=== PATIENT | female | born 1985 | race Caucasian/White ===

== ENCOUNTER → 2016-10-15 | Outpatient (CLI) | payer MEDICAID | LOC: LAB 19:18 | PROVIDERS: ATTEND Nurse Practitioner Acute Care | DX: R10.84 Generalized abdominal pain (principal) | CPT/HCPCS: 87086; 87088; 87186 ==

== ENCOUNTER 2017-05-22 21:42 | Emergency (ER) | payer MEDICAID ==
[2017-05-22] MEDS ORDERED: LORAZEPAM 1 MG TABLET PO ONE (22:15)
--- NOTE | 2017-05-22 23:09 | ER Document Report ---
ED General - General Chief Complaint: Psych Problem Stated Complaint: ANXIETY Time Seen by Provider: 05/22/17 22:15 Notes: Patient is a 32 year old female with past medical history of anxiety, situational depression, who presents after having an acute panic attack with associated chest pain. States this started due to being the anniversary of when she lost her children in a custody higuera. She reports that she has had similar panic attacks in the past but that this 1 was 1 of the most severe she has ever had. She is reporting improvement of her symptoms at the time of my assessment after receiving lorazepam. She notes that it was acute onset with associated shortness of breath, chest pain and a feeling of impending doom. She has no history of any cardiac pathology, pulmonary embolus or DVT. She denies any active pain at time of my assessment. Denies any suicidal or homicidal ideation. TRAVEL OUTSIDE OF THE [place] IN LAST 30 DAYS: No - Related Data Allergies/Adverse Reactions: amoxicillin Allergy (Verified 05/22/17 22:18) ibuprofen Allergy (Verified 05/22/17 22:18) Past Medical History - General Information source: Patient - Social History Smoking Status: Never Smoker Frequency of alcohol use: None Drug Abuse: None Lives with: Spouse/Significant other Family History: Reviewed & Not Pertinent Review of Systems - Review of Systems Notes: Constitutional: Negative for fever. HENT: Negative for sore throat. Eyes: Negative for visual changes. Cardiovascular: Positive for chest pain. Respiratory: Negative for shortness of breath. Gastrointestinal: Negative for abdominal pain, vomiting or diarrhea. Genitourinary: Negative for dysuria. Musculoskeletal: Negative for back pain. Skin: Negative for rash. Neurological: Negative for headaches, weakness or numbness. 10 point ROS negative except as marked above and in HPI. Physical Exam - Vital signs Vitals: Temp Pulse Resp BP Pulse Ox 98.4 F 109 H 24 H 125/72 99 05/22/17 21:53 05/22/17 21:53 05/22/17 21:53 05/22/17 21:53 05/22/17 21:53 Interpretation: Tachycardic, Tachypneic Notes: PHYSICAL EXAMINATION: GENERAL: Well-appearing, well-nourished and in no acute distress. HEAD: Atraumatic, normocephalic. EYES: Pupils equal round and reactive to light, extraocular movements intact, sclera anicteric, conjunctiva are normal. ENT: nares patent, oropharynx clear without exudates. Moist mucous membranes. NECK: Normal range of motion, supple without lymphadenopathy LUNGS: Breath sounds clear to auscultation bilaterally and equal. No wheezes rales or rhonchi. HEART: Regular rate and rhythm without murmurs ABDOMEN: Soft, nontender, normoactive bowel sounds. No guarding, no rebound. No masses appreciated. EXTREMITIES: Normal range of motion, no pitting or edema. No cyanosis. NEUROLOGICAL: No focal neurological deficits. Moves all extremities spontaneously and on command. PSYCH: Normal mood, normal affect. SKIN: Warm, Dry, normal turgor, no rashes or lesions noted. Course - Re-evaluation Re-evalutation: 05/22/17 23:03 Patient presents with history most consistent with an acute panic attack. The patient admits that these are symptoms identical to prior occasions of panic. There was a clear trigger for tonight's episode. Symptoms did resolve after receiving medical therapy here in the emergency department. Vitals otherwise within normal limits. I do not suspect an acute pulmonary embolus, ACS, pneumothorax, or any other acute left threatening pathology based on history and exam. I do not believe any labs or imaging are indicated at this time. At this time will discharge with return precautions and follow-up recommendations. Verbal discharge instructions given a the bedside and opportunity for questions given. Medication warnings reviewed. Patient is in agreement with this plan and has verbalized understanding of return precautions and the need for primary care follow-up in the next 24-72 hours. - Vital Signs Vital signs: Temp Pulse Resp BP Pulse Ox 98.3 F 82 16 106/66 99 05/22/17 23:26 05/22/17 23:26 05/22/17 23:26 05/22/17 23:26 05/22/17 23:26 - EKG Interpretation by Me Additional EKG results interpreted by me: 05/22/17 23:03 Normal sinus rhythm. Rate 98. No ST elevations or depressions. QTC is 455. Discharge - Discharge Clinical Impression: Anxiety attack Condition: Good Disposition: HOME, SELF-CARE Additional Instructions: You were seen today for a panic attack. Please return if you develop recurrance of your symptoms, thoughts of wanting to harm yourself, or any other symptoms that are concerning to you. Follow-up with your primary doctor or mental health provider regarding today's ED visit. Prescriptions: Hydroxyzine Pamoate [Vistaril 50 mg Capsule] 50 mg PO DAILY PRN #30 capsule PRN Reason:
[2017-05-22 23:40] VITALS: BP 106/66
--- NOTE | 2017-05-23 16:54 | EKG REPORT ---
SEVERITY:- BORDERLINE ECG - SINUS RHYTHM BORDERLINE RIGHT AXIS DEVIATION BORDERLINE T ABNORMALITIES, ANT-LAT LEADS : Confirmed by: Mara Martinez MD 23-May-2017 16:53:43
== END 2017-05-22 23:40 | disposition home or self-care (01) ==
LOC: ER 21:42
DX: F41.0 Panic disorder [episodic paroxysmal anxiety] (principal); R07.9 Chest pain, unspecified; R06.02 Shortness of breath; R00.0 Tachycardia, unspecified; Z88.0 Allergy status to penicillin; Z88.6 Allergy status to analgesic agent
CPT/HCPCS: 93005; 93010; 99284

== ENCOUNTER 2018-01-24 15:15 | Emergency (ER) | payer OTHER, MEDICAID | END 2018-01-24 15:20 | disposition left against medical advice (07) | LOC: ER 15:15 | DX: Z53.21 Procedure and treatment not carried out due to patient leaving prior to being seen by health care provider (principal); R10.9 Unspecified abdominal pain ==

== ENCOUNTER 2018-04-11 17:34 | Emergency (ER) | payer MEDICAID ==
[2018-04-11 17:42] VITALS: BP 123/74
--- NOTE | 2018-04-11 18:07 | ER Document Report ---
HPI - HPI Patient complains to provider of: Left upper arm pain Onset/Duration: Gradual Pain Level: 2 Context: 32-year-old female started working out again and has pain to her distal bicep of the left arm. She states it hurts worse than usual soreness when she works out and she wants to make sure nothing really bad has happened. Associated Symptoms: None Exacerbated by: Movement Relieved by: Denies - ROS ROS below otherwise negative: Yes Systems Reviewed and Negative: Yes All other systems reviewed and negative - REPRODUCTIVE Reproductive: REPORTS: : - MUSCULOSKELETAL Musculoskeletal: REPORTS: Extremity pain Past Medical History - General Information source: Patient - Social History Smoking Status: Current Every Day Smoker Frequency of alcohol use: None Drug Abuse: None Lives with: Family Family History: Reviewed & Not Pertinent Patient has suicidal ideation: No Patient has homicidal ideation: No Renal/ Medical History: Denies: Hx Peritoneal Dialysis Psychiatric Medical History: Reports: Hx Anxiety Past Surgical History: Reports: Hx Appendectomy, Hx Genitourinary Surgery - L ovary removed, Hx Gynecologic Surgery - Left salpingo-oophorectomy and multiple laparoscopies for endometriosis., Hx Tonsillectomy - Immunizations Hx Diphtheria, Pertussis, Tetanus Vaccination: Yes Vertical Provider Document - CONSTITUTIONAL Agree With Documented VS: Yes Exam Limitations: No Limitations - INFECTION CONTROL TRAVEL OUTSIDE OF THE [place] IN LAST 30 DAYS: No - MUSCULOSKELETAL/EXTREMETIES Musculoskeletal/Extremeties: MAEW, FROM, Tender - Distal left biceps without a defect in the muscle there is no edema or ecchymosis. negative: Edema, Eccymosis - NEURO Level of Consciousness: Awake Motor/Sensory: No Motor Deficit, No Sensory Deficit - DERM Integumentary: No Rash Course - Vital Signs Vital signs: Temp Pulse Resp BP Pulse Ox 98.7 F 80 20 123/74 100 04/11/18 17:40 04/11/18 17:40 04/11/18 17:40 04/11/18 17:40 04/11/18 17:40 Discharge - Discharge Clinical Impression: Left bicep muscle strain Condition: Good Disposition: HOME, SELF-CARE Instructions: Acetaminophen, Muscle Strain ([facility]) Additional Instructions: Warm compress Tylenol up to 4000 mg 4 pain Do not lift weights with this arm until the pain is resolved Gentle range of motion Return to the emergency room any concerns
== END 2018-04-11 18:17 | disposition home or self-care (01) ==
LOC: ER 17:34
DX: S46.212A Strain of muscle, fascia and tendon of other parts of biceps, left arm, initial encounter (principal); X58.XXXA Exposure to other specified factors, initial encounter; F17.200 Nicotine dependence, unspecified, uncomplicated
CPT/HCPCS: 99283

== ENCOUNTER 2018-09-29 20:57 | Emergency (ER) | payer SELFPAY ==
[2018-09-29 21:04] VITALS: BP 146/84
--- NOTE | 2018-09-29 22:31 | RADIOLOGY REPORT (SQ) ---
EXAM DESCRIPTION: XR WRIST 3 OR MORE VIEWS COMPLETED DATE/TME: 09/29/2018 00:00 CLINICAL HISTORY: 33 years, Female, WRIST crush INJURY with medial wrist pain COMPARISON: None. NUMBER OF VIEWS: Three views TECHNIQUE: Three views of the LEFT wrist were performed. LIMITATIONS: None. FINDINGS: Mild soft tissue swelling involves the medial aspect of the LEFT wrist. No radiopaque foreign body is identified. Bone mineralization is within normal limits. No fracture is identified. Bony alignment is maintained. No suspicious calcification is detected. IMPRESSION: Medial soft tissue injury. No LEFT wrist acute bony injury. copyright 2010 [employer]- All Rights Reserved
[2018-09-29] MEDS ORDERED: ONDANSETRON 4 MG TAB.RAPDIS PO ONE (23:01)
[2018-09-29] MEDS ORDERED: HYDROCODONE/ACETAMINOPHEN 5-325 MG TABLET PO ONE (23:02)
--- NOTE | 2018-09-29 23:03 | ER Document Report ---
HPI - HPI Time Seen by Provider: 09/29/18 22:22 Pain Level: 2 Notes: Patient is an otherwise healthy 33-year-old female presenting to the emergency department with left wrist pain. Patient reports just prior to arrival she was trying to change a tire when the tire iron flew back and struck her in the wrist. She has not taken any medications nor has she placed ice to the area. No history of previous trauma or surgery to this area. - CONSTITUTIONAL Constitutional: DENIES: Fever, Chills - EENT EENT: DENIES: Sore Throat, Ear Pain, Eye problems - NEURO Neurology: DENIES: Headache, Weakness, Vision blurred, Dizzinesss / Vertigo - CARDIOVASCULAR Cardiovascular: DENIES: Chest pain - RESPIRATORY Respiratory: DENIES: Trouble Breathing, Coughing - GASTROINTESTINAL Gastrointestinal: DENIES: Abdominal Pain, Black / Bloody Stools - URINARY Urinary: DENIES: Dysuria, Urgency, Frequency - REPRODUCTIVE Reproductive: DENIES: : - MUSCULOSKELETAL Musculoskeletal: REPORTS: Extremity pain - L wrist/hand Past Medical History - General Information source: Patient - Social History Smoking Status: Never Smoker Frequency of alcohol use: None Drug Abuse: None Family History: Reviewed & Not Pertinent Patient has suicidal ideation: No Patient has homicidal ideation: No Renal/ Medical History: Denies: Hx Peritoneal Dialysis Psychiatric Medical History: Reports: Hx Anxiety Past Surgical History: Reports: Hx Appendectomy, Hx Genitourinary Surgery - L ovary removed, Hx Gynecologic Surgery - Left salpingo-oophorectomy and multiple laparoscopies for endometriosis., Hx Tonsillectomy - Immunizations Hx Diphtheria, Pertussis, Tetanus Vaccination: Yes Vertical Provider Document - CONSTITUTIONAL Notes: PHYSICAL EXAMINATION: GENERAL: Well-appearing, well-nourished and in no acute distress. HEAD: Atraumatic, normocephalic. EYES: Pupils equal round extraocular movements intact, conjunctiva are normal. ENT: Nares patent NECK: Normal range of motion LUNGS: No respiratory distress Musculoskeletal: Normal range of motion, swelling and abrasion noted to the medial aspect of the left wrist, normal radial pulse, cap refill less than 3 seconds, normal motor and sensation distal to area of injury. NEUROLOGICAL: Normal speech, normal gait. PSYCH: Normal mood, normal affect. SKIN: Warm, Dry, normal turgor, no rashes or lesions noted. - INFECTION CONTROL TRAVEL OUTSIDE OF THE [place] IN LAST 30 DAYS: No Course - Re-evaluation Re-evalutation: X-ray shows soft tissue swelling to the medial aspect of the left wrist. No acute fracture or dislocation was noted. Will be given a cockup splint for support. Instructed to ice, elevate and take Tylenol as needed for pain as patient reports she is allergic to ibuprofen. - Vital Signs Vital signs: Temp Pulse Resp BP Pulse Ox 98.6 F 102 H 16 146/84 H 99 09/29/18 21:03 09/29/18 21:03 09/29/18 21:03 09/29/18 21:03 09/29/18 21:03 Procedures - Immobilization Left wrist Pre-Proc Neuro Vasc Exam: Normal Immobilizer type: Cock-up Performed by: PCT Post-Proc Neuro Vasc Exam: Normal Alignment checked and good: Yes Discharge - Discharge Clinical Impression: Contusion Qualifiers: Encounter type: initial encounter Contusion area: wrist Laterality: left Qualified Code(s): S60.212A - Contusion of left wrist, initial encounter Condition: Stable Disposition: HOME, SELF-CARE Additional Instructions: Contusion Your injury has resulted in a contusion -- a crushing of the deep tissues. No injury to important structures was detected during the physician's exam. Contusions vary in the amount of pain they cause, and in the length of time required for healing. Typically, the area will become bruised, and will remain painful to touch for two or three weeks. However, most patients are back to working and playing within a few days. After the initial period of rest and cold-packs, your symptoms (together with the doctor's recommendations) will determine how rapidly you can get back to full activity. Usually this means "do what feels okay, but don't do things that hurt." If re-examination was recommended, it's important to follow up as instructed. Call the doctor or return any time if pain increases, if swelling becomes severe, if you develop numbness or weakness in an injured extremity, or if any other alarming symptoms occur. Ice & Elevation Apply ice packs frequently against the painful area. Many different schedules are recommended, such as "20 minutes on, 20 minutes off" or "one hour ice, two hours rest." If you need to work, you may need to go longer between ice treatments. You should plan to have the area ice packed AT LEAST one-fourth of the time. The ice should be applied over the wrap, tape, or splint, or over a layer of cloth -- not directly against the skin. Some ice bags have a built-in cloth and can be put directly on the skin. Your injured part should be elevated as much as possible over the next 48 hours. Try to keep the injury above the level of the heart. Avoid use of the injured area. Elevation and rest will decrease the swelling. The x-rays were negative for any fracture or dislocation. Please take acetaminophen [id number] as directed to help with pain and inflammation. Forms: Return to Work Referrals: ALINE PHILLIPS MD [Primary Care Provider] - Follow up as needed
== END 2018-09-29 23:18 | disposition home or self-care (01) ==
LOC: ER 20:57
DX: S60.212A Contusion of left wrist, initial encounter (principal); M25.532 Pain in left wrist; M79.642 Pain in left hand; W20.8XXA Other cause of strike by thrown, projected or falling object, initial encounter; Y93.89 Activity, other specified
CPT/HCPCS: 99283; 73110; L3908; S0119

== ENCOUNTER 2018-11-20 12:40 | Emergency (ER) | payer BC ==
[2018-11-20 13:04] LABS: ABSOLUTE EOSINOPHILS # (AUTO) 0.1 10^3/uL (0.0-0.6); ABSOLUTE MONOCYTES (AUTO) 0.5 10^3/uL (0.1-1.4); ABSOLUTE NEUT (AUTO) 4.4 10^3/uL (1.7-8.2); BASOPHILS % (AUTO) 0.3 % (0-2); EOSINOPHILS % (AUTO) 1.3 % (0-6); HEMATOCRIT 39.2 % (36.0-47.0); LYMPHOCYTES % (AUTO) 28.2 % (13-45); MEAN CORPUSCULAR HEMOGLOBIN 33.4 pg (27.0-33.4); MEAN CORPUSCULAR HGB CONC 35.7 g/dL (32.0-36.0); MEAN CORPUSCULAR VOLUME 93 fl (80-97); MONOCYTES % (AUTO) 7.2 % (3-13); PLATELET COUNT 302 10^3/uL (150-450); TOTAL CELLS COUNTED % (AUTO) 100 %
[2018-11-20] MEDS ORDERED: NORMAL SALINE 1000 ML 1,000 ML IV ONE (13:13)
[2018-11-20 13:19] LABS: ALANINE AMINOTRANSFERASE 13 U/L (9-52); ALBUMIN 4.3 g/dL (3.5-5.0); ALKALINE PHOSPHATASE 53 U/L (38-126); ANION GAP 11 (5-19); ASPARTATE AMINO TRANSFERASE 18 U/L (14-36); BILIRUBIN,DIRECT 0.3 mg/dL (0.0-0.4); BILIRUBIN,TOTAL 0.4 mg/dL (0.2-1.3); BLOOD UREA NITROGEN 13 mg/dL (7-20); CALCIUM 10.1 mg/dL (8.4-10.2); CARBON DIOXIDE 20 mmol/L (22-30); CHLORIDE 108 mmol/L (98-107); CREATINE KINASE 70 U/L (30-135); GLUCOSE 111 mg/dL (75-110); POTASSIUM 3.5 mmol/L (3.6-5.0); SODIUM 138.8 mmol/L (137-145); TOTAL PROTEIN 6.9 g/dL (6.3-8.2)
--- NOTE | 2018-11-20 13:28 | ER Document Report ---
ED Syncope and Near Syncope - General Stated Complaint: VOMITING Time Seen by Provider: 11/20/18 13:11 Primary Care Provider: AMY JOSEPH MD [Primary Care Provider] - Follow up as needed Notes: Patient says that she was walking in the grocery store and began to feel dizzy and the next thing she knew, she was on the floor, having passed out and awakening with people around her. She tried to sit down but was unable to do so. She is been sick for the past couple of days with nausea and vomiting for 3 days and very poor oral intake. Says she is vomited a couple of times a day. Also says that she had an a ruptured ovarian cyst on and was seen at the local [facility] office by Dr. Lyle who put her on 3 antibiotics. Says her vis ion was blurred during the episode. Did not have any chest pains or shortness of breath. Some abdominal pains, but these are her usual secondary to her endometriosis. Transported here by EMS. Blood sugar was 122. Other vital signs appear to be normal on the way here. She was given IV Zofran and 200 mL of normal saline while in route. Patient has a history of endometriosis and has had numerous abdominal surgeries and laparoscopies, averaging a couple of times a year. Trying to decide if she is ready to have a hysterectomy or not. History of appendectomy. She has had her left tube and ovary removed. Patient has a long history of endometriosis. TRAVEL OUTSIDE OF THE [place] IN LAST 30 DAYS: No - Related Data Allergies/Adverse Reactions: amoxicillin Allergy (Verified 01/24/18 15:18) ibuprofen Allergy (Verified 01/24/18 15:18) Past Medical History - Social History Smoking Status: Current Every Day Smoker Family History: Reviewed & Not Pertinent Patient has suicidal ideation: No Patient has homicidal ideation: No Renal/ Medical History: Reports: Other - Endometriosis Psychiatric Medical History: Reports: Hx Anxiety Past Surgical History: Reports: Hx Appendectomy, Hx Genitourinary Surgery - L ovary removed, Hx Gynecologic Surgery - Left salpingo-oophorectomy and multiple laparoscopies for endometriosis., Hx Tonsillectomy - Immunizations Hx Diphtheria, Pertussis, Tetanus Vaccination: Yes Review of Systems - Review of Systems Notes: REVIEW OF SYSTEMS: CONSTITUTIONAL : Denies fever. EENT: Denies eye, ear, nose or mouth or throat pain or other symptoms. CARDIOVASCULAR: Denies chest pain. RESPIRATORY: Denies cough, chest congestion, or shortness of breath. GASTROINTESTINAL: See HPI. GENITOURINARY: Denies difficulty or painful urinating, urinary frequency, blood in urine. MUSCULOSKELETAL: Denies back or neck pain. Denies joint pain or swelling. SKIN: Denies rash or skin lesions. NEUROLOGICAL: Denies LOC or altered mental status. Denies headache. Denies sensory loss or motor deficits. ALL OTHER SYSTEMS REVIEWED AND NEGATIVE. Physical Exam - Vital signs Vitals: Temp Pulse Resp BP Pulse Ox 98.7 F 97 12 134/74 H 100 11/20/18 12:54 11/20/18 12:54 11/20/18 12:54 11/20/18 12:54 11/20/18 12:54 Interpretation: Normal Notes: PHYSICAL EXAMINATION: GENERAL: Well-appearing, in no acute distress. Vital signs are all normal. HEAD: Atraumatic, normocephalic. EYES: Pupils equal round and reactive to light, extraocular movements intact. ENT: oropharynx clear without exudates. Moist mucous membranes. NECK: Normal range of motion, supple. LUNGS: Breath sounds clear and equal bilaterally. HEART: Regular rate and rhythm without murmurs. ABDOMEN: Soft, nontender. No guarding or rebound. No masses. BACK: No tenderness throughout entire back. EXTREMITIES: Normal range of motion without pain. Negative Homans bilaterally. NEUROLOGICAL: Normal speech, normal gait. Normal sensory, motor, and reflex exams. Awake, alert, and oriented x3. Cranial nerves normal. PSYCH: Normal mood, normal affect. SKIN: Warm, dry, no rashes. Course - Re-evaluation Re-evalutation: 11/20/18 15:45 Patient has had nearly 2 L of fluids and says she feels much better. Does not have any headache at this time. Looks much better as well. - Vital Signs Vital signs: Temp Pulse Resp BP Pulse Ox 98.7 F 97 12 134/74 H 100 11/20/18 12:54 11/20/18 12:54 11/20/18 12:54 11/20/18 12:54 11/20/18 12:54 - Laboratory Result Diagrams: 11/20/18 12:18 11/20/18 12:18 Laboratory results interpreted by me: 11/20/18 12:18 Potassium 3.5 L Chloride 108 H Carbon Dioxide 20 L Glucose 111 H - EKG Interpretation by Me EKG shows normal: Sinus rhythm Rate: Normal Rhythm: NSR Discharge - Discharge Clinical Impression: Syncope, Dehydration, Hypokalemia Condition: Stable Disposition: HOME, SELF-CARE Additional Instructions: SYNCOPAL EPISODE: Syncope (fainting or near-fainting) can occur from many different health problems. Or it can be a simple fainting spell requiring no treatment. It is safe for you to go home, but further evaluation will likely be necessary. Your work-up may include tests for internal bleeding, heart disease, medication problems, or near-strokes. Tests are not always required, however, depending on the nature of your problem. The warning signs of an impending faint include: dizziness, lightheadedness, nausea, hot flashes, tingling, and weakness. If this happens, lay down and put your feet up, then wait until all of these symptoms have passed before standing up again. If these episodes become recurrent, or if you develop chest pain, heart palpitations, mental confusion, blurred vision, or headache, then you should call the physician, or go to the emergency room. Dehydration Dehydration can result from vomiting or diarrhea, fever, or decreased intake of fluids. If severe, hospitalization and intravenous fluids may be required. Most cases are treated at home with fluids by mouth. For the next 24 hours, drink lots of clear fluids. In mild cases, this can be soda pop or sports drinks. For more severe dehydration, the doctor may recommend special fluids such as Pedialyte or Lytren. Try to get three liters (3 quarts) of fluid per day. If vomiting occurs, continue to drink the fluids frequently (every 15 to 20 minutes), but in small amounts (one or two ounces). Depending on the type of dehydration, the doctor may prescribe antinausea medicine or potassium replacements. Call the doctor or return for re-examination if you become progressively weak, vomit repeatedly, or have other new symptoms. Hypokalemia You have an abnormally decreased level of serum potassium. Hypokalemia may cause weakness, fatigue, or heart rhythm abnormalities. Sometimes there are no symptoms at all. Usually, low serum potassium is due to taking diuretics (water pills). It can also be due to excessive vomiting or diarrhea. If no obvious cause is evident, further evaluation will be necessary. Treatment is usually oral potassium supplements. Take these exactly as prescribed. You may also want to select foods which are naturally high in potassium -- fruits (such as bananas, cantaloupe, grapes, oranges, prunes, tomatoes), fresh vegetables (potatoes, spinach, beans, peas), orange or tomato juice, tomato pasta sauce, milk, fish (halibut, tuna, salmon, ramin) A follow-up blood test is usually performed to assure that the potassium is returning to normal. Call the physician if you suffer severe weakness, muscle twitching or cramping, palpitations (pounding or irregular heartbeat), or any other new or alarming symptoms. Intravenous (IV) Fluids As part of your care today, you received intravenous (IV) fluids. IV fluids are administered to patients who are dehydrated or to those who have certain chemical (electrolyte) abnormalities that need correcting. FOLLOW-UP CARE: If you have been referred to a physician for follow-up care, call the physicians office for an appointment as you were instructed or within the next two days. If you experience worsening or a significant change in your symptoms, notify the physician immediately or return to the Emergency Department at any time for re-evaluation. Forms: Return to Work Referrals: AMY JOSEPH MD [Primary Care Provider] - Follow up as needed
[2018-11-20 13:31] LABS: CREATINE KINASE MB 0.27 ng/mL (<4.55)
[2018-11-20 13:33] LABS: TROPONIN I < 0.012 ng/mL
[2018-11-20] MEDS ORDERED: METOCLOPRAMIDE HCL INJ/PF 10 MG/2 ML SDV IV ONE (14:14)
[2018-11-20 14:15] LABS: APPEARANCE,URINE CLEAR; BILIRUBIN,URINE NEGATIVE (NEGATIVE); COLOR,URINE YELLOW; GLUCOSE, URINE NEGATIVE (NEGATIVE); KETONES,URINE NEGATIVE (NEGATIVE); LEUKOCYTE ESTERASE,URINE NEGATIVE (NEGATIVE); NITRITE,URINE NEGATIVE (NEGATIVE); PROTEIN,URINE NEGATIVE (NEGATIVE); URINE SPECIFIC GRAVITY 1.005; UROBILINOGEN,URINE NEGATIVE mg/dL (<2.0)
[2018-11-20] MEDS ORDERED: ACETAMINOPHEN 325 MG TABLET PO ONE (14:15)
[2018-11-20] MEDS ORDERED: DIPHENHYDRAMINE HCL 50 MG/ML VIAL IV ONE (14:15)
[2018-11-20] MEDS ORDERED: POTASSIUM CHLORIDE 10 MEQ CAPSULE.ER PO ONE (14:35)
--- NOTE | 2018-11-20 15:35 | EKG REPORT ---
SEVERITY:- ABNORMAL ECG - SINUS RHYTHM BORDERLINE RIGHT AXIS DEVIATION =LPFB BORDERLINE T ABNORMALITIES, ANT-LAT LEADS : Confirmed by: Elias Coffman MD 20-Nov-2018 15:34:36
[2018-11-20 16:21] VITALS: BP 110/69
== END 2018-11-20 16:00 | disposition home or self-care (01) ==
LOC: ER 12:40
DX: R55 Syncope and collapse (principal); E86.0 Dehydration; E87.6 Hypokalemia; R11.2 Nausea with vomiting, unspecified; F17.200 Nicotine dependence, unspecified, uncomplicated
CPT/HCPCS: 93005; 99284; 96361; 96374; 96375; 36415; 82553; 82550; 84703; 85025; 80053; 81001; 84484; 93010; J1200; J2765; J7030

== ENCOUNTER → 2018-11-22 | Outpatient (CLI) | payer BC ==
--- NOTE | 2018-11-22 15:38 | RADIOLOGY REPORT (SQ) ---
EXAM DESCRIPTION: HYSTEROSALPINGOGRAM; HYSTERO CATH/INJECTION COMPLETED DATE/TIME: 11/22/2018 2:55 pm REASON FOR STUDY: N80.9 ENDOMETRIOSIS, UNSPECIFIED N80.9 ENDOMETRIOSIS, UNSPECIFIED COMPARISON: None. PROCEDURE: PRE-PROCEDURE: Procedure was explained to the patient. She was told to expect cramping du ring the procedure, and possible spotting post procedure. PROCEDURE: The cervix was prepped in sterile fashion. Under direct visual inspection, the cervix was cannulated with the hysterosalpingogram catheter and contrast injected. TECHNIQUE: Temporal fluoroscopic images acquired during the procedure stored to PACS. FLUOROSCOPY TIME: Less than 6 seconds 11 digital radiographic images saved to PACS. LIMITATIONS: None. FINDINGS: UTERUS: No identified anomalies. No synechia. RIGHT ADNEXA: Normal size fallopian tube. Free spill of contrast into the peritoneal cavity. LEFT ADNEXA: Patient is post left salpingo-oophorectomy. Short segment of patent left fallopian tube is present near the uterus. No further opacification of left adnexal structures. POST PROCEDURE: The patient tolerated the procedure with no adverse effects. IMPRESSION: POST LEFT SALPINGO-OOPHORECTOMY. OTHERWISE, UNREMARKABLE HYSTEROSALPINGOGRAM. COMMENT: Quality ID [id number]: Final reports for procedures using fluoroscopy that document radiation exp osure indices, or exposure time and number of fluorographic images (if radiation exposure indices are not available) TECHNICAL DOCUMENTATION: JOB ID: [id number] [employer]- All Rights Reserved Reading location - IP/workstation name: [email or web address]
== END ==
LOC: RAD 12:59
PROVIDERS: ATTEND Obstetrics & Gynecology Gynecology
DX: N80.9 Endometriosis, unspecified (principal)
CPT/HCPCS: 58340; 74740

== ENCOUNTER 2018-12-19 22:54 | Emergency (ER) | payer BC ==
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
[2018-12-19] MEDS ORDERED: NORMAL SALINE 1000 ML 1,000 ML IV ONE (23:31)
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
--- NOTE | 2018-12-20 00:06 | RADIOLOGY REPORT (SQ) ---
CLINICAL HISTORY: shortness of breath COMPARISON: None. TECHNIQUE: XR CHEST 1 VIEW 12/19/2018 11:29 PM CDT FINDINGS: Cardiac silhouette is normal in size. Lungs are clear without consolidation, atelectasis, mass or edema. There is no pleural effusion. There is no pneumothorax. There are no acute osseous findings. IMPRESSION: Clear lungs.
[2018-12-20 00:47] VITALS: BP 115/72
== END 2018-12-20 00:54 ==
LOC: ER 22:54
DX: T58.8X1A Toxic effect of carbon monoxide from other source, accidental (unintentional), initial encounter (principal); Y92.009 Unspecified place in unspecified non-institutional (private) residence as the place of occurrence of the external cause; J70.5 Respiratory conditions due to smoke inhalation; R51 Headache; R07.89 Other chest pain; R05 Cough; J02.9 Acute pharyngitis, unspecified; R06.02 Shortness of breath; R06.2 Wheezing; F17.200 Nicotine dependence, unspecified, uncomplicated; R00.0 Tachycardia, unspecified
CPT/HCPCS: 99291; 96360; 36415; 82375; 71045; J7030

== ENCOUNTER 2019-01-31 15:30 | Emergency (ER) | payer BC ==
[2019-01-31 16:49] LABS: ABSOLUTE EOSINOPHILS # (AUTO) 0.1 10^3/uL (0.0-0.6); ABSOLUTE MONOCYTES (AUTO) 0.4 10^3/uL (0.1-1.4); ABSOLUTE NEUT (AUTO) 7.3 10^3/uL (1.7-8.2); BASOPHILS % (AUTO) 0.3 % (0-2); EOSINOPHILS % (AUTO) 1.2 % (0-6); HEMATOCRIT 39.7 % (36.0-47.0); HEMOGLOBIN 13.9 g/dL (12.0-15.5); LYMPHOCYTES % (AUTO) 19.8 % (13-45); MEAN CORPUSCULAR HEMOGLOBIN 32.4 pg (27.0-33.4); MEAN CORPUSCULAR HGB CONC 35.1 g/dL (32.0-36.0); MEAN CORPUSCULAR VOLUME 92 fl (80-97); MONOCYTES % (AUTO) 4.5 % (3-13); PLATELET COUNT 241 10^3/uL (150-450); RED CELL DISTRIBUTION WIDTH 12.3 % (11.5-14.0); SEGMENTED NEUTROPHILS % (AUTO) 74.2 % (42-78); TOTAL CELLS COUNTED % (AUTO) 100 %; WHITE BLOOD COUNT 9.9 10^3/uL (4.0-10.5)
[2019-01-31 17:08] LABS: ALANINE AMINOTRANSFERASE 18 U/L (9-52); ALBUMIN 4.1 g/dL (3.5-5.0); ALCOHOL < 10 mg/dL (NONE DETECTED); ALKALINE PHOSPHATASE 42 U/L (38-126); ANION GAP 7 (5-19); ASPARTATE AMINO TRANSFERASE 18 U/L (14-36); BILIRUBIN,DIRECT 0.1 mg/dL (0.0-0.4); BILIRUBIN,TOTAL 0.2 mg/dL (0.2-1.3); BLOOD UREA NITROGEN 14 mg/dL (7-20); CALCIUM 9.9 mg/dL (8.4-10.2); CARBON DIOXIDE 26 mmol/L (22-30); CHLORIDE 105 mmol/L (98-107); GLUCOSE 96 mg/dL (75-110); POTASSIUM 4.2 mmol/L (3.6-5.0); SODIUM 138.4 mmol/L (137-145); TOTAL PROTEIN 6.4 g/dL (6.3-8.2)
[2019-01-31 17:30] LABS: APPEARANCE,URINE SLIGHTLY-CLOUDY; BILIRUBIN,URINE NEGATIVE (NEGATIVE); COLOR,URINE YELLOW; GLUCOSE, URINE NEGATIVE (NEGATIVE); KETONES,URINE NEGATIVE (NEGATIVE); LEUKOCYTE ESTERASE,URINE NEGATIVE (NEGATIVE); NITRITE,URINE NEGATIVE (NEGATIVE); PROTEIN,URINE NEGATIVE (NEGATIVE); URINE SPECIFIC GRAVITY 1.019; UROBILINOGEN,URINE NEGATIVE mg/dL (<2.0)
[2019-01-31 17:43] LABS: URINE AMPHETAMINES SCREEN NEGATIVE; URINE BARBITURATES SCREEN NEGATIVE; URINE BENZODIAZEPINES SCREEN NEGATIVE; URINE COCAINE SCREEN NEGATIVE; URINE MARIJUANA (THC) SCREEN UNCONFIRMED POSITIVE; URINE METHADONE SCREEN NEGATIVE; URINE PHENCYCLIDINE SCREEN NEGATIVE
[2019-01-31] MEDS ORDERED: METOCLOPRAMIDE HCL INJ/PF 10 MG/2 ML SDV IV ONE (18:54)
[2019-01-31] MEDS ORDERED: NORMAL SALINE 1000 ML 2,000 ML IV ONE (18:54)
--- NOTE | 2019-01-31 19:04 | ER Document Report ---
ED General - General TRAVEL OUTSIDE OF THE [place] IN LAST 30 DAYS: No <VLAD TIJERINA - Last Filed: 01/31/19 20:12> <AMRIT POLLARD - Last Filed: 02/01/19 00:02> - General Chief Complaint: Probable Seizure Stated Complaint: ABDOMINAL PAIN Time Seen by Provider: 01/31/19 18:40 Primary Care Provider: MARVIN LEWIS MD [COMMUNITY BASED STAFF] - Follow up tomorrow AMY JOSEPH MD [Primary Care Provider] - Follow up in 3-5 days - HPI Notes: 33-year-old female, G 10 P2, to the emergency department via EMS with complaints of either possible seizure or syncopal episode today while shopping at [employer]. Patient states that she was shopping for vitamin Gummies that she has been having a very difficult time with this and is hoping that she can keep down gummy vitamins. States she does not remember much but when she awoke the medics were at the pharmacy for her. When Medics got there she was alert and oriented and had no shaking movements. Patient states that she is about 5 or 6 weeks and she has not yet had a confirmed IUP. She admits that she also currently has right lower quadrant abdominal pain. States that she has been having a rough and has been not able to keep any food or drink down. She has been taking Diclegis and prior to that was taking Zofran without relief. She has never had a seizure before. She was seen 2 days ago here in the emergency department for similar situation and diagnosed with a syncopal episode. She states that yesterday she had a syncopal episode in the shower and her friend put her back into bed. She denies any chest pain, shortness of breath, leg swelling, history of clots during . Patient over to CASSIDY pollard, she will assume care and await ultrasound results for patient. She will dispo accordingly. We did bedside turn over with the patient. (VLAD TIJERINA) - Related Data Allergies/Adverse Reactions: amoxicillin Allergy (Verified 01/24/18 15:18) ibuprofen Allergy (Verified 01/24/18 15:18) Past Medical History - General Information source: Patient, Emergency Med Personnel - Social History Smoking Status: Never Smoker Frequency of alcohol use: None Drug Abuse: None Family History: Reviewed & Not Pertinent Patient has suicidal ideation: No Patient has homicidal ideation: No Renal/ Medical History: Denies: Hx Peritoneal Dialysis Psychiatric Medical History: Reports: Hx Anxiety Past Surgical History: Reports: Hx Appendectomy, Hx Genitourinary Surgery - L ovary removed, Hx Gynecologic Surgery - Left salpingo-oophorectomy and multiple laparoscopies for endometriosis., Hx Tonsillectomy - Immunizations Hx Diphtheria, Pertussis, Tetanus Vaccination: Yes <VLAD TIJERINA - Last Filed: 01/31/19 20:12> Review of Systems - Review of Systems Constitutional: Weakness. denies: Chills, Fever, Malaise EENT: No symptoms reported Cardiovascular: Syncope, Lightheaded. denies: Chest pain, Palpitations, Heart racing Respiratory: denies: Cough, Short of breath Gastrointestinal: Abdominal pain, Nausea, Vomiting. denies: Diarrhea Genitourinary: denies: Frequency, Flank pain, Hematuria Musculoskeletal: denies: Leg swelling, Ankle swelling Skin: No symptoms reported Neurological/Psychological: denies: Numbness, Tingling -: Yes All other systems reviewed and negative <VLAD TIJERINA - Last Filed: 01/31/19 20:12> Physical Exam - Vital signs Interpretation: Tachycardic - General General appearance: Other In distress: None - Thin young woman who appears nauseated, noted tachycardia on monitor of 105. - HEENT Head: Normocephalic, Atraumatic Eyes: Normal Pupils: PERRL - Respiratory Respiratory status: No respiratory distress Chest status: Nontender Breath sounds: Normal Chest palpation: Normal - Cardiovascular Rhythm: Tachycardia Heart sounds: Normal auscultation Murmur: No - Abdominal Inspection: Normal Distension: No distension Bowel sounds: Normal Tenderness: Tender - +tenderness to palpation over the right lower quadrant Organomegaly: No organomegaly - Neurological Neuro grossly intact: Yes Cognition: Normal Orientation: AAOx4 [place] Coma Scale Eye Opening: Spontaneous [place] Coma Scale Verbal: Oriented [place] Coma Scale Motor: Obeys Commands [place] Coma Scale Total: 15 Speech: Normal Motor strength normal: LUE, RUE, LLE, RLE Sensory: Normal - Psychological Associated symptoms: Normal affect, Normal mood - Skin Skin Temperature: Warm Skin Moisture: Dry Skin Color: Normal <MARCOS TIJERINACT Hopkins - Last Filed: 01/31/19 20:12> - Vital signs Vitals: Resp Pulse Ox 13 98 01/31/19 15:39 01/31/19 15:39 Selected Entries 01/31/19 01/31/19 18:01 19:07 Heart Rate ( 92 118 Monitors) Respiratory 16 24 H Rate Blood Pressure 98/67 L 107/68 Blood Pressure 81 Mean O2 Sat by Pulse 99 99 Oximetry (VLAD TIJERINA) - Cardiovascular Notes: No leg edema (VLAD TIJERINA) Course - Laboratory Result Diagrams: 01/31/19 16:19 01/31/19 16:19 - Diagnostic Test Radiology reviewed: Pending - EKG Interpretation by Ny EKG shows normal: Sinus rhythm - Sinus tachycardia, no STEMI, unchanged from prior Rate: Tachycardia When compared to previous EKG there are: No significant change <TIJERINA,VLAD M - Last Filed: 01/31/19 20:12> - Laboratory Result Diagrams: 01/31/19 16:19 01/31/19 16:19 <AMRIT POLLARD - Last Filed: 02/01/19 00:02> - Re-evaluation Re-evalutation: 01/31/19 23:56 There is no intrauterine at this time, but I suspect the patient is too early to see any intrauterine . I assessed her belly and I do not suspect an ectopic at this time, as she does not have tenderness on physical exam. She does have history of ovarian cysts, which are present on her transvaginal ultrasound. I have offered her a work-up here in the emergency department, but she states that she would much rather be seen outpatient. She will be referred out for neurology and [facility] for follow-up. She also follow-up with her primary care provider in regards to this visit. She states that she will have people following her home to make sure that she is okay and she will return immediately if she has seizure activity again. She will also be sent home with Reglan to help with her nausea. Follow-up precautions were given. Verbal discharge instructions were given to the patient. They verbalized understanding. They are stable for discharge. (AMRIT POLLARD) - Vital Signs Vital signs: Temp Pulse Resp BP Pulse Ox 99.1 F 20 105/60 98 01/31/19 16:01 01/31/19 22:01 01/31/19 22:01 01/31/19 22:01 - Laboratory Laboratory results interpreted by me: 01/31/19 01/31/19 01/31/19 16:19 16:19 17:08 Serum HCG, Qual POSITIVE H Beta HCG, Quant 197.91 H Urine Ascorbic Acid 40 H - Transfer of Care Notes: 01/31/19 19:[address] Lima. Both agree that patient's presenting symptoms of recurrent possible syncope are concerning in the setting of . We will obtain bilateral PVL studies to evaluate for DVT as well as d-dimer. Will order troponin, BNP as well since she is having recurrent then she will need admission. She also reports right lower quadrant abdominal pain has not had a confirmed IUP. Will evaluate for possible ectopic that could be giving her these events as well. I have rounded on the patient about this and we have discussed all of these possibilities. She agrees with plan to proceed forward. We will give 2 L of fluid and Reglan for nausea. Noted labs. Concerning that she has no ketones in her urine, no electrolyte abnormalities, no change in her creatinine and BUN that would signify dehydration. Did perform orthostatics on patient when sitting her heart rate is now decreased down to 88 bpm, when she stands she feels acutely lightheaded like she might pass out and her heart rate goes all the way to 122. (VLAD TIJERINA) Discharge <VLAD TIJERINA - Last Filed: 01/31/19 20:12> <ARMIT POLLARD - Last Filed: 02/01/19 00:02> - Discharge Clinical Impression: Positive test Syncope Qualifiers: Syncope type: unspecified Qualified Code(s): R55 - Syncope and collapse Condition: Stable Disposition: HOME, SELF-CARE Additional Instructions: You are seen today in the emergency department for a syncopal episode. You have opted to have a follow-up outpatient instead of being worked up here in the hospital. Please follow-up with neurology, [facility], and your primary care provider this week in regards to this visit. If you pass out, have a seizure, or have any other symptoms that are worrisome to you, please return to the emergency department. You have also been given Reglan, medication to help with nausea. Please take this as needed. Prescriptions: Metoclopramide HCl [Reglan 10 mg Tablet] 1 - 2 tab PO ASDIR PRN #25 tablet PRN Reason: Forms: Return to Work Referrals: AMY JOSEPH MD [Primary Care Provider] - Follow up in 3-5 days MARVIN LEWIS MD [COMMUNITY BASED STAFF] - Follow up tomorrow
--- NOTE | 2019-01-31 21:05 | XCELERA REPORT ---
[address] [facility] [address] Lower Extremity Venous Evaluation Procedure: Color flow and duplex imaging bilaterally of the veins of the lower extremities as well as the Common Femoral veins. Right Sided Venous Evaluation Normal vessel filling wall to wall, compression and augmentation as well as Colour flow down to the infrageniculate veins. Left Sided Venous Evaluation Normal vessel filling wall to wall, compression and augmentation as well as Colour flow down to the infrageniculate veins. Interpretation Summary No duplex evidence of DVT or obstruction in the bilateral lower extremities. Name: HAYLEY WEBSTER Age: 33 yrs Gender: Female : 1985 Patient Status: Emergency Patient Location: ER Study Date: 01/31/2019 07:33 PM Reason For Study: er 6 eval for a dvt Ordering Physician: VLAD TIJERINA Performed By: Adelaida Acosta : VLAD TIJERINA > Aren Herman
[2019-01-31 21:28] LABS: NT PRO BNP 52 pg/mL (<125)
[2019-01-31 21:29] LABS: TROPONIN I < 0.012 ng/mL
--- NOTE | 2019-01-31 22:37 | RADIOLOGY REPORT (SQ) ---
EXAM DESCRIPTION: US TRANSVAGINAL COMPLETED DATE/TME: 01/31/2019 18:51 CLINICAL HISTORY: 33 years, Female, RLQ abd pain, eval ectopic, no confirmed IUP COMPARISON: None. TECHNIQUE: Limited transvaginal imaging was performed per service request. Transabdominal imaging was not performed. LIMITATIONS: None. FINDINGS: The uterus measures 7.6 x 5.4 x 4.8 cm. No visualization of intrauterine gestational sac, yolk sac or pole. Endometrial thickness measures 14 mm. Small focus of hypoechogenicity present at the level of what is suspected to represent the cervix suggestive of nabothian cyst. The structure measures up to 5 mm. The LEFT ovary is not visualized status post removal. The RIGHT ovary reveals positive color Doppler flow. The RIGHT ovary overall measures 4.9 x 2.9 x 3.4 cm. At least one focal area of hypoechogenicity is identified measuring 1.7 x 2.0 cm with posterior acoustic enhancement suggesting a simple ovarian cyst. A more focal area of increased complexity is identified within the RIGHT ovary measuring 2.9 x 3.0 x 2.1 cm. There is internal heterogeneous echogenicity without associated color Doppler flow raising the possibility of hemorrhagic or corpus luteum type cyst. Peripheral Doppler flow is present. Best noted on Cine sonographic images is a focal area of crenulated increased echogenicity with central decreased echogenicity measuring 13 x 9 mm, not clearly delineated on prior static imaging. No color Doppler was applied to this region specifically. This lesion is of unclear location, and may include tubal location, or less likely within the RIGHT ovary, given rare occurrence. The possibility of tubal versus ovarian ectopic cannot be completely excluded. The possibility of corpus luteum is considered in the differential. Small volume of free pelvic fluid is seen. IMPRESSION: 1. No intrauterine gestational contents are identified. In the setting of a positive test, ectopic cannot be excluded. 2. Focal area of crenulated increased echogenicity with central decreased echogenicity as detailed above, concerning for the possibility of ectopic of uncertain location versus corpus luteum. Short-term interval follow-up sonographic and beta hCG evaluation with attention to this area is recommended. 3. More complex appearing lesion within the RIGHT ovary raising the question of hemorrhagic cyst measuring up to 29 mm. 4. Simple appearing RIGHT adnexal cyst measuring 4.9 cm. copyright 2010 [employer]- All Rights Reserved
[2019-01-31] MEDS ORDERED: METOCLOPRAMIDE HCL 10 MG TABLET PO ONE (23:59)
[2019-02-01 00:04] VITALS: BP 100/64
--- NOTE | 2019-02-01 07:46 | EKG REPORT ---
SEVERITY:- OTHERWISE NORMAL ECG - SINUS TACHYCARDIA BORDERLINE RIGHT AXIS DEVIATION : Confirmed by: Mara Martinez MD 01-Feb-2019 07:46:29
== END 2019-02-01 00:13 | disposition home or self-care (01) ==
LOC: ER 15:30
DX: R55 Syncope and collapse (principal); Z32.01 Encounter for pregnancy test, result positive; R11.0 Nausea; R00.0 Tachycardia, unspecified; R10.813 Right lower quadrant abdominal tenderness; Z88.0 Allergy status to penicillin; Z88.6 Allergy status to analgesic agent
CPT/HCPCS: 93005; 99284; 96361; 96374; 36415; 82962; 80307 ×2; 84702; 83735; 84703; 85025; 80053; 81001; 84484; 85379; 83880; 93970 ×2; 76817; 93976; 93010; J2765; J7030

== ENCOUNTER 2019-02-14 15:40 | Emergency (ER) | payer BC ==
--- NOTE | 2019-02-14 16:10 | ER Document Report ---
ED GI/ - General Chief Complaint: Abdominal Pain Stated Complaint: ABDOMINAL PAIN Time Seen by Provider: 02/14/19 16:09 Primary Care Provider: MAY JOSEPH MD [Primary Care Provider] - Follow up as needed Mode of Arrival: Ambulatory Information source: Patient Notes: 33 yr old female patient, who works here at [employer], with the listed pmh, who is currently , 1st trimester, here for rlq abdominal pain x the last few hrs. had an US done recently that was too early to show much. she feels like she is about 5 or 6 wks. she recently had a work up by [facility], dr espinal, and quant and std testing then and doesn't want a repeat pelvic exam. she does have a hx of pre-eclampsia in her last , no eclampsia, no other complications in . she also has hx of pcos, endometriosis, and fibroids. denies vaginal bleeding or dc. she is taking prenatals. pain not controlled with otc tylenol. she is requesting pain control. No abdominal surgeries other than a remote left Salpingoophorectomy, ex lap, and appendectomy. hx of a known recent 4cm right ovarian cyst. hx of this chronic intermittent rlq abd pain for a while known secondary to known ov cyst however pt states it was worse today so she came in for eval. she is No history of renal stones. Normal bowel movements. No UTI symptoms. No URI symptoms. No recent antibiotics or steroids. No history of diabetes or asthma. No vaginal discharge/complaints/lesions or concerns for STDs and does not want a pelvic exam. No ripping or tearing sensation. Has an upcoming apt with obgyn. No excessive NSAID use, Tylenol use, or EtOH. No prior history of gallbladder disease, pancreatitis, ulcers, GI bleed, GERD, IBS, Crohn's, or UC. no change in color or caliber or stool. no blood thinners. no fall or trauma. no other associated sx. TRAVEL OUTSIDE OF THE [place] IN LAST 30 DAYS: No - HPI Context: Location: RLQ - Related Data Allergies/Adverse Reactions: amoxicillin Allergy (Verified 01/24/18 15:18) ibuprofen Allergy (Verified 01/24/18 15:18) Past Medical History - General Information source: Patient - Social History Smoking Status: Unknown if Ever Smoked Frequency of alcohol use: unknoen Drug Abuse: Other - unknown Family History: Reviewed & Not Pertinent - Medical History Medical History: Other - see hpi Renal/ Medical History: Denies: Hx Peritoneal Dialysis Psychiatric Medical History: Reports: Hx Anxiety Past Surgical History: Reports: Hx Appendectomy, Hx Gynecologic Surgery - Left salpingo-oophorectomy and multiple laparoscopies for endometriosis., Hx Tonsillectomy - Immunizations Hx Diphtheria, Pertussis, Tetanus Vaccination: Yes Review of Systems - Review of Systems -: Yes All other systems reviewed and negative - to include 10 systems, unless mentioned in the hpi Physical Exam - Vital signs Vitals: Temp Pulse BP Pulse Ox 98.3 F 121 H 117/57 L 99 02/14/19 16:26 02/14/19 16:26 02/14/19 16:26 02/14/19 16:26 Temp Pulse BP Pulse Ox 02/14/19 19:06 98.6 F 79 106/54 L 100 02/14/19 16:26 98.3 F 121 H 117/57 L 99 - Notes Notes: >>>> PHYSICAL_EXAM: GENERAL_APPEARANCE: well_nourished, alert, cooperative, mild_acute_distress, mild-mod_obvious_discomfort. Pleasant, thin young white female, appears in pain but not toxic, hunched over tearful, holding the rlq of her abd, speaking in full sentences, in no sign of resp distress, sitting up exacerbates pain, young female at bedside with her VITALS: reviewed, see vital signs table. HEAD: normocephalic, atraumatic. no higuera signs. no raccoon eyes. EYES: PERRL, EOMI, (-)scleral icterus. NOSE: no_nasal_discharge. MOUTH: (-)decreased moisture. THROAT: no_tonsilar_inflammation/hypertrophy/exudate NECK: supple, no_neck_tenderness, full rom. full strength. no meningeal signs. BACK: no midline_back_tenderness. no step offs or deformities CHEST_WALL: no_chest_tenderness. LUNGS: no_wheezing, (-)accessory muscle use, good air exchange bilateral. HEART: normal_rate, normal_rhythm, ABDOMEN: normal_BS, soft, abdomen-diffuse, mild-mod ttp of the rlq, (- )guarding, (-)rebound, no distension or peritoneal signs. neg murphys. neg mcburneys. no cva tenderness. neg heel strike. neg obturator. neg psoas. neg rovsign. no palpable masses. no palpable uterus PELVIC: pt deferred RECTAL: deferred EXTREMITIES: strength 5/5 in all_extremities, good pulses in all_extremities, no_edema, no_swelling\tenderness. full rom. normal gait. 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 brisk cap refill. SKIN: warm, dry, good_color, no_rash. no grossly visible overlying skin changes to suggest trauma NEURO: motor_intact, sensory_intact. cranial nerves 2-12 intact, cerebellar fxn intact MENTAL_STATUS: normal_affect, speech_clear, oriented_X_3, responds_appropriately to questions. Course - Re-evaluation Re-evalutation: 02/14/19 pt here for rlq abd pain in early . quant is rising from 190s to 21,000s in 2 wks. she is rH positive. hx of known 4cm right ov cyst. she doesn't have an appendix. labs otherwise unremarkable. denies vaginal bleeding or dc and doesn't want a pelvic. denies any other sx. she has f/u soon with [facility]yn at [facility], dr espinal, US today confirmed living IUP 6w 2d with good heart beat and was otherwise unremarkable per rad and reviewed by myself other than the known right ov cyst which appears smaller per pts report of 4cm previously and is 2cm on today exam. no sign of torsion or ectopic. she responded well to pain meds, nausea meds, and fluids here. vitals improved. pain and nausea controlled. tolerating po. advised cont prenatals. tylenol for any pain at home. push fluids. f/u with obgyn in 1-2 days for recheck. return for any worsening sx. pt understands and agrees to plan. vss. she is well appearing and much improved after tx today. advised pelvic rest. no heavy lifting. both until cleared by obgyn. On reexam, pt improved with tx listed. remained stable. nontoxic. well appe aring. pain controlled. tolerating po. requesting to go home. serial abd exams remain benign. pt requesting narcotic pain control. she understood the risks of of the possible harm/injury to all aspects with the use of narcotics in but does appear in pain and agreed to proceed with pain control here despite these risks. case discussed with ER Attending, Dr. mejía, who directed and agrees with plan of care and advised no further workup indicated at this time and pt is stable for dc home with close f/u with obgyn. dr mejía advised to avoid sending home with narcotics secondary to and i support this also. pt states she has nausea meds at home also. Documentation achieved through voice recording which my lead to some occasional accidental typographical errors. Extensive efforts have been made to proof read documentation to make sure these are the least as possible. Category Date Time Status Saline Lock (ED) NOW Care 02/14/19 16:06 Active U/S OB TRANSVAG W/DOPPLER [US] Stat Exams 02/14/19 16:23 Completed CBC WITH DIFF [HEME] Stat Lab 02/14/19 16:00 Completed COMPREHENSIVE METABOLIC PANEL [CHEM] Stat Lab 02/14/19 16:00 Completed HCG QUANTITATIVE [CHEM] Stat Lab 02/14/19 16:00 Completed LIPASE [CHEM] Stat Lab 02/14/19 16:00 Completed RHOGAM WORKUP [BBK] Stat Lab 02/14/19 17:20 Completed URINALYSIS [URIN] Stat Lab 02/14/19 17:00 Completed Acetaminophen [Tylenol 325 mg Tablet] Med 02/14/19 17:17 Discontinued 650 mg PO NOW ONE Nalbuphine HCl [Nubain Inj 10 mg/1 ml Ampule] Med 02/14/19 18:57 Discontinued 10 mg INJ NOW ONE Normal Saline 1000 ml [NaCl 0.9% 1000 ml IV Soln] 1,000 Med 02/14/19 17:17 Discontinued ml IV BOLUS Ondansetron HCl/Pf [Zofran Inj/Pf 4 mg/2 ml Sdv] Med 02/14/19 17:17 Discontinued 4 mg IV NOW ONE Labs- Entire Visit 02/14/19 02/14/19 02/14/19 16:00 16:00 17:00 WBC 9.0 RBC 4.00 Hgb 12.9 Hct 36.6 MCV 92 MCH 32.2 MCHC 35.2 RDW 12.5 Plt Count 267 Seg Neutrophils % 71.8 Lymphocytes % 21.6 Monocytes % 5.3 Eosinophils % 0.8 Basophils % 0.5 Absolute Neutrophils 6.5 Absolute Lymphocytes 1.9 Absolute Monocytes 0.5 Absolute Eosinophils 0.1 Absolute Basophils 0.0 Sodium 137.2 Potassium 3.5 L Chloride 103 Carbon Dioxide 26 Anion Gap 8 BUN 12 Creatinine 0.54 Est GFR ( Amer) > 60 Est GFR (Non-Af Amer) > 60 Glucose 81 Calcium 10.0 Total Bilirubin 0.4 Direct Bilirubin 0.2 Neonat Total Bilirubin Not Reportable Neonat Direct Bilirubin Not Reportable Neonat Indirect Bili Not Reportable AST 21 ALT 15 Alkaline Phosphatase 42 Total Protein 6.8 Albumin 4.4 Lipase 83.3 Beta HCG, Quant 66417.00 H Total Beta HCG POSITIVE Urine Color STRAW Urine Appearance CLEAR Urine pH 8.0 Ur Specific Granite 1.004 Urine Protein NEGATIVE Urine Glucose (UA) NEGATIVE Urine Ketones NEGATIVE Urine Blood NEGATIVE Urine Nitrite NEGATIVE Urine Bilirubin NEGATIVE Urine Urobilinogen NEGATIVE Ur Leukocyte Esterase NEGATIVE Urine WBC (Auto) 1 Urine RBC (Auto) 1 Urine Bacteria (Auto) 1+ Squamous Epi Cells Auto 1 Urine Ascorbic Acid NEGATIVE Blood Type Rhogam Indicated 02/14/19 17:20 WBC RBC Hgb Hct MCV MCH MCHC RDW Plt Count Seg Neutrophils % Lymphocytes % Monocytes % Eosinophils % Basophils % Absolute Neutrophils Absolute Lymphocytes Absolute Monocytes Absolute Eosinophils Absolute Basophils Sodium Potassium Chloride Carbon Dioxide Anion Gap BUN Creatinine Est GFR ( Amer) Est GFR (Non-Af Amer) Glucose Calcium Total Bilirubin Direct Bilirubin Neonat Total Bilirubin Neonat Direct Bilirubin Neonat Indirect Bili AST ALT Alkaline Phosphatase Total Protein Albumin Lipase Beta HCG, Quant Total Beta HCG Urine Color Urine Appearance Urine pH Ur Specific Granite Urine Protein Urine Glucose (UA) Urine Ketones Urine Blood Urine Nitrite Urine Bilirubin Urine Urobilinogen Ur Leukocyte Esterase Urine WBC (Auto) Urine RBC (Auto) Urine Bacteria (Auto) Squamous Epi Cells Auto Urine Ascorbic Acid Blood Type A POSITIVE Rhogam Indicated RHOGAM NOT INDICATED Transvaginal US 02/14/19 16:23 IMPRESSION: LIVING INTRAUTERINE . EGA 6 weeks 2 days Trimester of : First - 0 to 13 weeks. 02/24/19 19:34 02/24/19 19:36 02/24/19 19:40 - Vital Signs Vital signs: Temp Pulse Resp BP Pulse Ox 98.6 F 79 106/54 L 100 02/14/19 19:06 02/14/19 19:06 02/14/19 19:06 02/14/19 19:06 - Laboratory Result Diagrams: 02/14/19 16:00 02/14/19 16:00 Laboratory results interpreted by me: 02/14/19 16:00 Potassium 3.5 L Beta HCG, Quant . H Labs- Entire Visit 02/14/19 02/14/19 02/14/19 16:00 16:00 17:00 WBC 9.0 RBC 4.00 Hgb 12.9 Hct 36.6 MCV 92 MCH 32.2 MCHC 35.2 RDW 12.5 Plt Count 267 Seg Neutrophils % 71.8 Lymphocytes % 21.6 Monocytes % 5.3 Eosinophils % 0.8 Basophils % 0.5 Absolute Neutrophils 6.5 Absolute Lymphocytes 1.9 Absolute Monocytes 0.5 Absolute Eosinophils 0.1 Absolute Basophils 0.0 Sodium 137.2 Potassium 3.5 L Chloride 103 Carbon Dioxide 26 Anion Gap 8 BUN 12 Creatinine 0.54 Est GFR ( Amer) > 60 Est GFR (Non-Af Amer) > 60 Glucose 81 Calcium 10.0 Total Bilirubin 0.4 Direct Bilirubin 0.2 Neonat Total Bilirubin Not Reportable Neonat Direct Bilirubin Not Reportable Neonat Indirect Bili Not Reportable AST 21 ALT 15 Alkaline Phosphatase 42 Total Protein 6.8 Albumin 4.4 Lipase 83.3 Beta HCG, Quant .00 H Total Beta HCG POSITIVE Urine Color STRAW Urine Appearance CLEAR Urine pH 8.0 Ur Specific Granite 1.004 Urine Protein NEGATIVE Urine Glucose (UA) NEGATIVE Urine Ketones NEGATIVE Urine Blood NEGATIVE Urine Nitrite NEGATIVE Urine Bilirubin NEGATIVE Urine Urobilinogen NEGATIVE Ur Leukocyte Esterase NEGATIVE Urine WBC (Auto) 1 Urine RBC (Auto) 1 Urine Bacteria (Auto) 1+ Squamous Epi Cells Auto 1 Urine Ascorbic Acid NEGATIVE Blood Type Rhogam Indicated 02/14/19 17:20 WBC RBC Hgb Hct MCV MCH MCHC RDW Plt Count Seg Neutrophils % Lymphocytes % Monocytes % Eosinophils % Basophils % Absolute Neutrophils Absolute Lymphocytes Absolute Monocytes Absolute Eosinophils Absolute Basophils Sodium Potassium Chloride Carbon Dioxide Anion Gap BUN Creatinine Est GFR ( Amer) Est GFR (Non-Af Amer) Glucose Calcium Total Bilirubin Direct Bilirubin Neonat Total Bilirubin Neonat Direct Bilirubin Neonat Indirect Bili AST ALT Alkaline Phosphatase Total Protein Albumin Lipase Beta HCG, Quant Total Beta HCG Urine Color Urine Appearance Urine pH Ur Specific Granite Urine Protein Urine Glucose (UA) Urine Ketones Urine Blood Urine Nitrite Urine Bilirubin Urine Urobilinogen Ur Leukocyte Esterase Urine WBC (Auto) Urine RBC (Auto) Urine Bacteria (Auto) Squamous Epi Cells Auto Urine Ascorbic Acid Blood Type A POSITIVE Rhogam Indicated RHOGAM NOT INDICATED Transvaginal US 02/14/19 16:23 IMPRESSION: LIVING INTRAUTERINE . EGA 6 weeks 2 days Trimester of : First - 0 to 13 weeks. - Diagnostic Test Radiology reviewed: Image reviewed, Reports reviewed Radiology results interpreted by me: 02/14/19 18:57 Transvaginal US 02/14/19 16:23 IMPRESSION: LIVING INTRAUTERINE . EGA 6 weeks 2 days Trimester of : First - 0 to 13 weeks. Discharge - Discharge Clinical Impression: Threatened in first trimester, Right ovarian cyst Qualifiers: Weeks of gestation: less than 8 weeks Qualified Code(s): Z3A.01 - Less than 8 weeks gestation of Abdominal pain during Qualifiers: Trimester: first trimester Qualified Code(s): O26.891 - Other specified related conditions, first trimester; R10.9 - Unspecified abdominal pain Condition: Stable Disposition: HOME, SELF-CARE Instructions: Threatened Abortions ( Patients), ([facility]), [facility]-[employer] Doctors, Oral Narcotic Medication ([facility]) Additional Instructions: Follow-up with your CORPORATE SAFETY DIRECTOR in 1 to 2 days for a recheck. Return to the ER for any worsening symptoms. Pelvic rest and No heavy lifting until cleared by your obgyn. Continue taking your vitamins. Tylenol as needed for any pain. You can continue to take your nausea meds as needed for any vomiting. Referrals: AMY JOSEPH MD [Primary Care Provider] - Follow up as needed BRIANNA ESPINAL MD [ACTIVE STAFF] - Follow up tomorrow
[2019-02-14 16:20] LABS: ABSOLUTE EOSINOPHILS # (AUTO) 0.1 10^3/uL (0.0-0.6); ABSOLUTE LYMPHOCYTES (AUTO) 1.9 10^3/uL (0.5-4.7); ABSOLUTE MONOCYTES (AUTO) 0.5 10^3/uL (0.1-1.4); ABSOLUTE NEUT (AUTO) 6.5 10^3/uL (1.7-8.2); BASOPHILS % (AUTO) 0.5 % (0-2); EOSINOPHILS % (AUTO) 0.8 % (0-6); HEMATOCRIT 36.6 % (36.0-47.0); HEMOGLOBIN 12.9 g/dL (12.0-15.5); LYMPHOCYTES % (AUTO) 21.6 % (13-45); MEAN CORPUSCULAR HEMOGLOBIN 32.2 pg (27.0-33.4); MEAN CORPUSCULAR HGB CONC 35.2 g/dL (32.0-36.0); MEAN CORPUSCULAR VOLUME 92 fl (80-97); MONOCYTES % (AUTO) 5.3 % (3-13); PLATELET COUNT 267 10^3/uL (150-450); RED CELL DISTRIBUTION WIDTH 12.5 % (11.5-14.0); SEGMENTED NEUTROPHILS % (AUTO) 71.8 % (42-78); TOTAL CELLS COUNTED % (AUTO) 100 %
[2019-02-14 16:28] LABS: ALANINE AMINOTRANSFERASE 15 U/L (9-52); ALBUMIN 4.4 g/dL (3.5-5.0); ALKALINE PHOSPHATASE 42 U/L (38-126); ANION GAP 8 (5-19); ASPARTATE AMINO TRANSFERASE 21 U/L (14-36); BILIRUBIN,DIRECT 0.2 mg/dL (0.0-0.4); BILIRUBIN,TOTAL 0.4 mg/dL (0.2-1.3); BLOOD UREA NITROGEN 12 mg/dL (7-20); CARBON DIOXIDE 26 mmol/L (22-30); CHLORIDE 103 mmol/L (98-107); GLUCOSE 81 mg/dL (75-110); LIPASE 83.3 U/L (23-300); POTASSIUM 3.5 mmol/L (3.6-5.0); SODIUM 137.2 mmol/L (137-145)
[2019-02-14 16:29] LABS: TOTAL PROTEIN 6.8 g/dL (6.3-8.2)
[2019-02-14] MEDS ORDERED: ACETAMINOPHEN 325 MG TABLET PO ONE (17:17)
[2019-02-14] MEDS ORDERED: ONDANSETRON HCL INJ/PF 4 MG/2 ML SDV IV ONE (17:17)
[2019-02-14] MEDS ORDERED: NORMAL SALINE 1000 ML 1,000 ML IV ONE (17:17)
[2019-02-14 17:50] LABS: APPEARANCE,URINE CLEAR; BILIRUBIN,URINE NEGATIVE (NEGATIVE); COLOR,URINE STRAW; GLUCOSE, URINE NEGATIVE (NEGATIVE); KETONES,URINE NEGATIVE (NEGATIVE); LEUKOCYTE ESTERASE,URINE NEGATIVE (NEGATIVE); NITRITE,URINE NEGATIVE (NEGATIVE); PROTEIN,URINE NEGATIVE (NEGATIVE); URINE SPECIFIC GRAVITY 1.004; UROBILINOGEN,URINE NEGATIVE mg/dL (<2.0)
--- NOTE | 2019-02-14 18:10 | RADIOLOGY REPORT (SQ) ---
EXAM DESCRIPTION: U/S OB TRANSVAG W/DOPPLER COMPLETED DATE/TIME: 02/14/2019 5:43 pm REASON FOR STUDY: rlq abd pain, r/o ectopic COMPARISON: None. TECHNIQUE: Transvaginal static and realtime grayscale images acquired of the pelvis. Additional jeannie cted spectral and color Doppler images recorded. All images stored on PACs. bHCG: Not available. CLINICAL DATES: 6 weeks 5 days LIMITATIONS: None. FINDINGS: FETUS: Single Living intrauterine . ULTRASOUND EGA: 6 weeks 2 days ULTRASOUND ASHA: 10/08/2019 EFW: Not applicable less than 20 weeks. CRL: 5.1 mm FHR: 135 beats per minute. SURVEY: Too early to assess. AMNIOTIC FLUID: Adequate amount. PLACENTA: Not yet developed due to early gestation. SUBCHORIONIC BLEED: No SIZE OF BLEED: Not applicable. UTERUS: No masses. No anomalies. CERVICAL LENGTH: 1.8 cm. Closed. RIGHT ADNEXA: Normal ovary with normal vascular flow. 3.3 x 3.5 x 2.4 cm. There is a 2 cm ovarian c yst. No adnexal free fluid. No adnexal masses. LEFT ADNEXA: Left ovary is surgically absent. No adnexal free fluid. No adnexal masses. FREE FLUID: None. OTHER: No other significant finding. IMPRESSION: LIVING INTRAUTERINE . EGA 6 weeks 2 days Trimester of : First - 0 to 13 weeks. TECHNICAL DOCUMENTATION: JOB ID: [id number] [employer]- All Rights Reserved rev Reading location - IP/workstation name: [email or web address]
[2019-02-14] MEDS ORDERED: NALBUPHINE HCL INJ 10 MG/1 ML AMPULE INJ ONE (18:57)
[2019-02-14 19:09] VITALS: BP 106/54
== END 2019-02-14 19:08 | disposition home or self-care (01) ==
LOC: ER 15:40
DX: O34.81 Maternal care for other abnormalities of pelvic organs, first trimester (principal); N83.201 Unspecified ovarian cyst, right side; O20.0 Threatened abortion; Z3A.01 Less than 8 weeks gestation of pregnancy; Z88.0 Allergy status to penicillin
CPT/HCPCS: 99284; 96361; 96374; 96375; 86900; 86901; 36415; 84702; 83690; 85025; 80053; 81001; 76817; 93976; J2300; J2405; J7030

== ENCOUNTER 2019-04-21 10:45 | Emergency (ER) | payer BC, MEDICAID ==
[2019-04-21] MEDS ORDERED: NORMAL SALINE 1000 ML 1,000 ML IV ONE ×2 (10:52→11:45)
[2019-04-21 11:14] LABS: ABSOLUTE LYMPHOCYTES (AUTO) 1.3 10^3/uL (0.5-4.7); ABSOLUTE MONOCYTES (AUTO) 0.3 10^3/uL (0.1-1.4); ABSOLUTE NEUT (AUTO) 8.9 10^3/uL (1.7-8.2); BASOPHILS % (AUTO) 0.4 % (0-2); EOSINOPHILS % (AUTO) 0.3 % (0-6); HEMATOCRIT 36.4 % (36.0-47.0); HEMOGLOBIN 12.7 g/dL (12.0-15.5); LYMPHOCYTES % (AUTO) 12.5 % (13-45); MEAN CORPUSCULAR VOLUME 92 fl (80-97); MONOCYTES % (AUTO) 3.1 % (3-13); PLATELET COUNT 223 10^3/uL (150-450); RED BLOOD COUNT 3.97 10^6/uL (3.72-5.28); RED CELL DISTRIBUTION WIDTH 13.4 % (11.5-14.0); SEGMENTED NEUTROPHILS % (AUTO) 83.7 % (42-78); TOTAL CELLS COUNTED % (AUTO) 100 %; WHITE BLOOD COUNT 10.6 10^3/uL (4.0-10.5)
[2019-04-21 11:31] LABS: ALBUMIN 3.5 g/dL (3.5-5.0); ALKALINE PHOSPHATASE 53 U/L (38-126); ANION GAP 9 (5-19); ASPARTATE AMINO TRANSFERASE 22 U/L (14-36); BILIRUBIN,DIRECT 0.2 mg/dL (0.0-0.4); BILIRUBIN,TOTAL 0.2 mg/dL (0.2-1.3); BLOOD UREA NITROGEN 7 mg/dL (7-20); CALCIUM 8.9 mg/dL (8.4-10.2); CARBON DIOXIDE 22 mmol/L (22-30); CHLORIDE 107 mmol/L (98-107); GLUCOSE 77 mg/dL (75-110); POTASSIUM 4.2 mmol/L (3.6-5.0)
[2019-04-21 13:26] LABS: APPEARANCE,URINE SLIGHTLY-CLOUDY; BILIRUBIN,URINE NEGATIVE (NEGATIVE); COLOR,URINE YELLOW; GLUCOSE, URINE NEGATIVE (NEGATIVE); KETONES,URINE TRACE mg/dL (NEGATIVE); LEUKOCYTE ESTERASE,URINE NEGATIVE (NEGATIVE); NITRITE,URINE NEGATIVE (NEGATIVE); PROTEIN,URINE NEGATIVE (NEGATIVE); URINE SPECIFIC GRAVITY 1.009; UROBILINOGEN,URINE NEGATIVE mg/dL (<2.0)
[2019-04-21 14:36] VITALS: BP 113/57
--- NOTE | 2019-04-21 15:55 | ER Document Report ---
Entered by JACKI DAWN SCRIBE 04/21/19 1104 Acting as scribe for:AMRIT LOWE DO ED General - General Chief Complaint: Syncope Stated Complaint: POSSIBLE SEIZURE Time Seen by Provider: 04/21/19 10:52 Primary Care Provider: AMY JOSEPH MD [Primary Care Provider] - Follow up as needed Mode of Arrival: Ambulatory Information source: Patient Notes: Patient is a 34 year old female that presents to the emergency department today with complaints of syncope prior to arrival. Patient states she is , and is with all miscarriages occurring before 8 weeks gestation, with the exception of one miscarriage at 19 weeks. Patient states she has been vomiting and diarrhea for several days. Patient has had some associated abdominal cramping as well. Patient denies any urinary symptoms. TRAVEL OUTSIDE OF THE [place] IN LAST 30 DAYS: No - Related Data Allergies/Adverse Reactions: amoxicillin Allergy (Verified 04/21/19 10:54) ibuprofen Allergy (Verified 04/21/19 10:54) Past Medical History - General Information source: Patient - Social History Smoking Status: Unknown if Ever Smoked Frequency of alcohol use: None Drug Abuse: None Lives with: Family Family History: Reviewed & Not Pertinent Psychiatric Medical History: Reports: Hx Anxiety Past Surgical History: Reports: Hx Appendectomy, Hx Genitourinary Surgery - L ovary removed, Hx Gynecologic Surgery - Left salpingo-oophorectomy and multiple laparoscopies for endometriosis., Hx Tonsillectomy - Immunizations Hx Diphtheria, Pertussis, Tetanus Vaccination: Yes Review of Systems - Review of Systems Constitutional: No symptoms reported EENT: No symptoms reported Cardiovascular: See HPI, Syncope Respiratory: No symptoms reported Gastrointestinal: See HPI, Abdominal pain, Diarrhea, Nausea, Vomiting Genitourinary: denies: Dysuria Female Genitourinary: No symptoms reported Musculoskeletal: No symptoms reported Skin: No symptoms reported Hematologic/Lymphatic: No symptoms reported Neurological/Psychological: See HPI, Headaches -: Yes All other systems reviewed and negative Physical Exam - Vital signs Vitals: Resp Pulse Ox 20 99 04/21/19 10:52 04/21/19 10:52 Interpretation: Normal - General General appearance: Appears well, Alert - HEENT Head: Normocephalic, Atraumatic Eyes: Normal Pupils: PERRL Mucous membranes: Dry - Respiratory Respiratory status: No respiratory distress Chest status: Nontender Breath sounds: Normal Chest palpation: Normal - Cardiovascular Rhythm: Regular, Tachycardia Heart sounds: Normal auscultation Murmur: No - Abdominal Inspection: Normal Distension: No distension Bowel sounds: Normal Tenderness: Nontender Organomegaly: No organomegaly - Back Back: Normal, Nontender - Extremities General upper extremity: Normal inspection, Nontender, Normal color, Normal ROM, Normal temperature General lower extremity: Normal inspection, Nontender, Normal color, Normal ROM, Normal temperature, Normal weight bearing. No: Skylar's sign - Neurological Neuro grossly intact: Yes Cognition: Normal Orientation: AAOx4 Gurley Coma Scale Eye Opening: Spontaneous Fede Coma Scale Verbal: Oriented Fede Coma Scale Motor: Obeys Commands Gurley Coma Scale Total: 15 Speech: Normal Motor strength normal: LUE, RUE, LLE, RLE Sensory: Normal - Psychological Associated symptoms: Normal affect, Normal mood - Skin Skin Temperature: Warm Skin Moisture: Dry Skin Color: Normal Course - Re-evaluation Re-evalutation: 04/21/19 15:54 Patient with no acute findings on blood work. Taking p.o. Ambulated to bathroom easily. Symptoms consistent with dehydration. Patient feels better after fluids. No further new cramping. No urinary tract symptoms. Culture sent. Follow-up with [facility] HELPER. Understands agrees with plan. Stable for discharge. - Vital Signs Vital signs: Temp Pulse Resp BP Pulse Ox 98.7 F 94 25 H 113/57 L 99 04/21/19 11:09 04/21/19 11:09 04/21/19 14:29 04/21/19 14:30 04/21/19 14:29 - Laboratory Result Diagrams: 04/21/19 10:56 04/21/19 10:56 Laboratory results interpreted by me: 04/21/19 04/21/19 04/21/19 10:56 10:56 12:35 WBC 10.6 H Lymph % (Auto) 12.5 L Absolute Neuts (auto) 8.9 H Seg Neutrophils % 83.7 H Creatinine 0.43 L Total Protein 6.0 L Urine Ketones TRACE H Discharge - Discharge Clinical Impression: Light-headed, Dehydration Qualifiers: Weeks of gestation: 15 weeks Qualified Code(s): Z3A.15 - 15 weeks gestation of Condition: Stable Disposition: HOME, SELF-CARE Instructions: Dehydration ([facility]), Near Syncopal Episode ([facility]) Prescriptions: Ondansetron [Zofran Odt 4 mg Tablet] 1 tab PO Q6HP PRN #15 tab.rapdis PRN Reason: For Nausea/Vomiting Metoclopramide HCl [Reglan 10 mg Tablet] 1 - 2 tab PO ASDIR PRN #25 tablet PRN Reason: Forms: Return to Work Referrals: AMY JOSEPH MD [Primary Care Provider] - Follow up as needed I personally performed the services described in the documentation, reviewed and edited the documentation which was dictated to the scribe in my presence, and it accurately records my words and actions.
== END 2019-04-21 14:36 | disposition home or self-care (01) ==
LOC: ER 10:45
DX: O26.92 Pregnancy related conditions, unspecified, second trimester (principal); E86.0 Dehydration; R55 Syncope and collapse; Z3A.15 15 weeks gestation of pregnancy; Z88.0 Allergy status to penicillin; Z88.6 Allergy status to analgesic agent
CPT/HCPCS: 99284; 96360; 96361; 36415; 87086; 82550; 85025; 80053; 81001; J7030

== ENCOUNTER 2019-06-04 21:38 | Emergency (ER) | payer BC, MEDICAID ==
--- NOTE | 2019-06-04 22:43 | ER Document Report ---
ED General - General Chief Complaint: Fall Stated Complaint: FALL - UNCONSIOUS/FAINTING/HEAD PAIN Time Seen by Provider: 06/04/19 22:24 Primary Care Provider: AMY JOSEPH MD [ACTIVE STAFF] - Follow up tomorrow Mode of Arrival: Ambulatory Information source: Patient, Friend Notes: 34-year-old female G 11 P2 at 22 weeks gestation presents from home after a witnessed syncopal episode. Patient states she has a known diagnosis of orthostatic hypotension and has been following with cardiology, [facility] and neurology. She states this happens frequently to her. She states that she is supposed to be on bedrest but today "overdid it". She states she took a long car ride and when she got out of the car felt lightheaded and by the time she walked to the front door had fallen. Patient syncopal episode was witnessed by her roommate. She denies any preceding chest pain, shortness of breath. Patient is currently asymptomatic. She denies any abdominal pain, vaginal bleeding. She does have an upcoming appointment for an echocardiogram. TRAVEL OUTSIDE OF THE [place] IN LAST 30 DAYS: No - HPI Onset: Just prior to arrival Onset/Duration: Sudden Quality of pain: No pain Severity: None Pain Level: Denies Associated symptoms: Other - Denies abdominal pain, vaginal bleeding. denies: Body/muscle aches, Chest pain, Nonproductive cough, Productive cough, Fever, Nausea, Vomiting, Shortness of breath Exacerbated by: Standing Relieved by: Remaining still Similar symptoms previously: Yes Recently seen / treated by doctor: Yes - Related Data Allergies/Adverse Reactions: amoxicillin Allergy (Verified 04/21/19 10:54) ibuprofen Allergy (Verified 04/21/19 10:54) Home Medications: . Vitamin D. folic acid. ASA Past Medical History - General Information source: Patient, Friend, [facility] Records - Social History Smoking Status: Former Smoker Frequency of alcohol use: None Drug Abuse: None Lives with: Friend Family History: Reviewed & Not Pertinent Patient has suicidal ideation: No Patient has homicidal ideation: No Renal/ Medical History: Denies: Hx Peritoneal Dialysis Psychiatric Medical History: Reports: Hx Anxiety Past Surgical History: Reports: Hx Appendectomy, Hx Genitourinary Surgery - L ovary removed, Hx Gynecologic Surgery - Left salpingo-oophorectomy and multiple laparoscopies for endometriosis., Hx Tonsillectomy - Immunizations Hx Diphtheria, Pertussis, Tetanus Vaccination: Yes Review of Systems - Review of Systems Notes: REVIEW OF SYSTEMS: CONSTITUTIONAL : Denies fever, chills, or sweats. Denies recent illness. Denies weight loss, recent hospitalizations. EENT: Denies visual changes, eye pain. Denies sore throat, oral lesions, difficulty swallowing. CARDIOVASCULAR: Denies chest pain. Denies palpitations. Denies lower extremity edema. RESPIRATORY: Denies cough. Denies shortness of breath, wheezing. GASTROINTESTINAL: Denies abdominal pain or distention. Denies nausea, vomiting, or diarrhea. Denies blood in vomitus, stools, or per rectum. Denies black, tarry stools. Denies constipation. GENITOURINARY: Denies difficulty urinating, painful urination, frequency, blood in urine, or vaginal discharge. MUSCULOSKELETAL: Denies back or neck pain or stiffness. Denies joint pain or swelling. SKIN: Denies rash, lesions or sores. HEMATOLOGIC : Denies easy bruising or bleeding. LYMPHATIC: Denies swollen glands. NEUROLOGICAL: Denies confusion or altered mental status. + loss of consciousness. Denies dizziness or lightheadedness. Denies headache. Denies weakness or paralysis. Denies problems difficulty with ambulation, slurred speech. Denies sensory loss, numbness, or tingling. Denies seizures. PSYCHIATRIC: Denies anxiety or stress. Denies depression, suicidal ideation, or homicidal ideation. Denies visual or auditory hallucinations. Physical Exam - Vital signs Vitals: Resp 10 L 06/04/19 21:42 - Notes Notes: PHYSICAL EXAMINATION: GENERAL: Well-appearing, well-nourished and in no acute distress. HEAD: Atraumatic, normocephalic. EYES: Pupils equal round and reactive to light, extraocular movements intact, conjunctiva are normal. ENT: Nares patent, oropharynx clear without exudates. Moist mucous membranes. NECK: Normal range of motion, supple without lymphadenopathy LUNGS: Breath sounds clear to auscultation bilaterally and equal. No wheezes rales or rhonchi. HEART: Regular rate and rhythm without murmurs ABDOMEN: Soft, nontender, nondistended abdomen. No guarding, no rebound. No masses appreciated. Female : deferred Musculoskeletal: Normal range of motion, no pitting or edema. No cyanosis. NEUROLOGICAL: Cranial nerves grossly intact. Normal speech, normal gait. Normal sensory, motor exams PSYCH: Normal mood, normal affect. SKIN: Warm, Dry, normal turgor, no rashes or lesions noted. Course - Re-evaluation Re-evalutation: 06/04/19 22:43 Temp Pulse Resp BP Pulse Ox 98.5 F 13 124/69 99 06/04/19 22:01 06/04/19 22:01 06/04/19 22:01 06/04/19 22:01 06/04/19 23:25 heart tones 148. Presentation of syncope known frequent episodes during her her .. Patient normotensive, alert, without focal neurologic deficits at time of arri miguel. Denies syncope was during exertion. No preceding symptoms of palpitations, chest pain, or shortness of breath. Patient asymptomatic at time of arrival. EKG is without evidence of HCOM, right heart strain, ST changes to suggest ischemia, prolong QTc, delta wave, epsilon wave, or Brugada syndrome. Patient denies any family history of sudden cardiac , personal history of of structural heart disease. Patient denies any symptoms to suggest an acute PE, IN, TAD, SAH, seizure, or acute GI bleed as the etiology of their syncope today. On exam, no murmurs to suggest critical aortic stenosis as possible etiology. Based on overall clinical history, exam findings, vitals, and patients appearance, I feel it is safe for patient to be discharged home at this time with close outpatient follow-up and strict return precautions. Patient is in agreement with this plan, has verbalized indications for return to ED, and questions have been answered. Patient was evaluated and treated as appropriate for the patient's presenting symptoms and complaint, with consideration of any critical or life threatening conditions that may be associated with their obtained history and exam as noted above. All results were discussed with patient and roommate who is at the bedside. Patient provided the opportunity to ask questions, and express concerns. Patient was educated on treatments based on their presumed diagnosis as noted above. At this time we will discharge the patient with return precautions and follow-up recommendations. Verbal discharge instructions given a the bedside. Medication warnings reviewed. Patient is in agreement with this plan and has verbalized understanding of return precautions. After careful consideration I feel that that patient can be safely discharged from the emergency department, they were advised to followup with a primary care physician in 2-3 days. Dictation on this chart was performed using voice recognition software and may result in unintended grammatical, spelling, syntax or errors. 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 Refrain from driving. Please drink plenty of fluids and return to the emergency department if you develop abdominal pain, vaginal bleeding, chest pain or any other symptoms concerning to you. Referrals: AMY JOSEPH MD [ACTIVE STAFF] - Follow up tomorrow
[2019-06-04 23:07] VITALS: BP 116/65
--- NOTE | 2019-06-05 02:14 | EKG REPORT ---
SEVERITY:- OTHERWISE NORMAL ECG - SINUS RHYTHM BORDERLINE RIGHT AXIS DEVIATION : Confirmed by: Serge Alvarado 05-Jun-2019 02:13:55
== END 2019-06-04 23:16 | disposition home or self-care (01) ==
LOC: ER 21:38
DX: O26.892 Other specified pregnancy related conditions, second trimester (principal); I95.1 Orthostatic hypotension; Z3A.22 22 weeks gestation of pregnancy; Z88.0 Allergy status to penicillin; Z88.6 Allergy status to analgesic agent
CPT/HCPCS: 93005; 93010; 99284

== ENCOUNTER 2019-06-19 18:50 | Outpatient (CLI) | payer MEDICAID ==
[2019-06-19 19:37] LABS: APPEARANCE,URINE CLEAR; BILIRUBIN,URINE NEGATIVE (NEGATIVE); COLOR,URINE STRAW; GLUCOSE, URINE NEGATIVE (NEGATIVE); KETONES,URINE NEGATIVE (NEGATIVE); LEUKOCYTE ESTERASE,URINE NEGATIVE (NEGATIVE); NITRITE,URINE NEGATIVE (NEGATIVE); PROTEIN,URINE NEGATIVE (NEGATIVE); URINE SPECIFIC GRAVITY 1.005; UROBILINOGEN,URINE NEGATIVE mg/dL (<2.0)
[2019-06-19 19:59] LABS: URINE AMPHETAMINES SCREEN NEGATIVE; URINE BARBITURATES SCREEN NEGATIVE; URINE BENZODIAZEPINES SCREEN NEGATIVE; URINE COCAINE SCREEN NEGATIVE; URINE MARIJUANA (THC) SCREEN NEGATIVE; URINE METHADONE SCREEN NEGATIVE; URINE PHENCYCLIDINE SCREEN NEGATIVE
== END 2019-06-19 21:20 | disposition home or self-care (01) ==
LOC: LC 18:50
PROVIDERS: ATTEND Obstetrics & Gynecology
PROC: 4A1HXCZ Monitoring of Products of Conception, Cardiac Rate, External Approach (ICD-10-PCS; principal; 2019-06-19)
DX: O47.02 False labor before 37 completed weeks of gestation, second trimester (principal); Z3A.24 24 weeks gestation of pregnancy
CPT/HCPCS: 80307; 81001

== ENCOUNTER 2019-07-13 16:30 | Outpatient (CLI) | payer BC, MEDICAID ==
[2019-07-13 17:16] LABS: APPEARANCE,URINE SLIGHTLY-CLOUDY; BILIRUBIN,URINE NEGATIVE (NEGATIVE); COLOR,URINE YELLOW; GLUCOSE, URINE 50 mg/dL (NEGATIVE); KETONES,URINE NEGATIVE (NEGATIVE); LEUKOCYTE ESTERASE,URINE NEGATIVE (NEGATIVE); NITRITE,URINE NEGATIVE (NEGATIVE); PROTEIN,URINE NEGATIVE (NEGATIVE); URINE SPECIFIC GRAVITY 1.008; UROBILINOGEN,URINE NEGATIVE mg/dL (<2.0)
[2019-07-13 17:25] LABS: URINE AMPHETAMINES SCREEN NEGATIVE; URINE BARBITURATES SCREEN NEGATIVE; URINE BENZODIAZEPINES SCREEN NEGATIVE; URINE COCAINE SCREEN NEGATIVE; URINE MARIJUANA (THC) SCREEN NEGATIVE; URINE METHADONE SCREEN NEGATIVE; URINE PHENCYCLIDINE SCREEN NEGATIVE
[2019-07-13] MEDS ORDERED: HYDROXYZINE PAMOATE 50 MG CAPSULE ONE (17:40)
[2019-07-13] MEDS ORDERED: HYDROXYZINE PAMOATE 50 MG CAPSULE PO ONE (18:00)
== END 2019-07-13 18:45 | disposition home or self-care (01) ==
LOC: LC 16:30
PROVIDERS: ATTEND Obstetrics & Gynecology
PROC: 4A1HXCZ Monitoring of Products of Conception, Cardiac Rate, External Approach (ICD-10-PCS; principal; 2019-07-13)
DX: O47.02 False labor before 37 completed weeks of gestation, second trimester (principal); Z3A.27 27 weeks gestation of pregnancy
CPT/HCPCS: 80307; 81001

== ENCOUNTER 2020-02-26 12:44 | Emergency (ER) | payer BC, MEDICAID ==
--- NOTE | 2020-02-26 13:18 | ER Document Report ---
ED Medical Screen (RME) - General Chief Complaint: Post Surgical Pain Stated Complaint: POST OP PAIN Time Seen by Provider: 02/26/20 13:09 Notes: HPI: 34-year-old female presenting for worsening pelvic pain with some vaginal bleeding today. Patient had a full hysterectomy at [facility] 4 days ago. States she left without getting a prescription for pain medication now having more pain across the pelvis. Patient also lifted up her daughter today and felt a popping sensation in the lower abdomen and is now having some vaginal bleeding PHYSICAL EXAMINATION: Mild tenderness across the lower abdomen and pelvis. Patient appears mildly uncomfortable. exam deferred in triage I have greeted and performed a rapid initial assessment of this patient. A comprehensive ED assessment and evaluation of the patient, analysis of test results and completion of medical decision making process will be conducted by an additional ED providers. TRAVEL OUTSIDE OF THE [place] IN LAST 30 DAYS: No - Related Data Allergies/Adverse Reactions: amoxicillin Allergy (Verified 04/21/19 10:54) ibuprofen Allergy (Verified 04/21/19 10:54) Past Medical History - Social History Frequency of alcohol use: None Drug Abuse: None Renal/ Medical History: Denies: Hx Peritoneal Dialysis Psychiatric Medical History: Reports: Hx Anxiety Past Surgical History: Reports: Hx Appendectomy, Hx Genitourinary Surgery - L ovary removed, Hx Gynecologic Surgery - Left salpingo-oophorectomy and multiple laparoscopies for endometriosis., Hx Tonsillectomy - Immunizations Hx Diphtheria, Pertussis, Tetanus Vaccination: Yes Physical Exam - Vital signs Vitals: Temp Pulse Resp BP Pulse Ox 97.9 F 88 18 112/60 98 02/26/20 12:49 02/26/20 12:49 02/26/20 12:49 02/26/20 12:49 02/26/20 12:49 Course - Vital Signs Vital signs: Temp Pulse Resp BP Pulse Ox 97.9 F 88 18 112/60 98 02/26/20 12:49 02/26/20 12:49 02/26/20 12:49 02/26/20 12:49 02/26/20 12:49
[2020-02-26 13:53] LABS: ABSOLUTE EOSINOPHILS # (AUTO) 0.1 10^3/uL (0.0-0.6); ABSOLUTE LYMPHOCYTES (AUTO) 1.5 10^3/uL (0.5-4.7); ABSOLUTE MONOCYTES (AUTO) 0.2 10^3/uL (0.1-1.4); BASOPHILS % (AUTO) 0.6 % (0-2); EOSINOPHILS % (AUTO) 0.8 % (0-6); HEMATOCRIT 36.3 % (36.0-47.0); HEMOGLOBIN 12.9 g/dL (12.0-15.5); LYMPHOCYTES % (AUTO) 22.1 % (13-45); MEAN CORPUSCULAR HEMOGLOBIN 32.5 pg (27.0-33.4); MEAN CORPUSCULAR HGB CONC 35.7 g/dL (32.0-36.0); MEAN CORPUSCULAR VOLUME 91 fl (80-97); MONOCYTES % (AUTO) 3.6 % (3-13); PLATELET COUNT 256 10^3/uL (150-450); RED BLOOD COUNT 3.99 10^6/uL (3.72-5.28); RED CELL DISTRIBUTION WIDTH 13.1 % (11.5-14.0); SEGMENTED NEUTROPHILS % (AUTO) 72.9 % (42-78); TOTAL CELLS COUNTED % (AUTO) 100 %; WHITE BLOOD COUNT 6.8 10^3/uL (4.0-10.5)
[2020-02-26 13:56] LABS: PROTHROMBIN TIME 14.2 SEC (11.4-15.4)
[2020-02-26 14:00] LABS: APPEARANCE,URINE CLEAR; BILIRUBIN,URINE NEGATIVE (NEGATIVE); COLOR,URINE STRAW; GLUCOSE, URINE NEGATIVE (NEGATIVE); KETONES,URINE NEGATIVE (NEGATIVE); LEUKOCYTE ESTERASE,URINE NEGATIVE (NEGATIVE); NITRITE,URINE NEGATIVE (NEGATIVE); PROTEIN,URINE NEGATIVE (NEGATIVE); URINE SPECIFIC GRAVITY 1.005; UROBILINOGEN,URINE NEGATIVE mg/dL (<2.0)
[2020-02-26 14:21] LABS: ALBUMIN 3.9 g/dL (3.5-5.0); ALKALINE PHOSPHATASE 48 U/L (38-126); ANION GAP 6 (5-19); ASPARTATE AMINO TRANSFERASE 16 U/L (14-36); BILIRUBIN,TOTAL 0.3 mg/dL (0.2-1.3); BLOOD UREA NITROGEN 8 mg/dL (7-20); CALCIUM 9.2 mg/dL (8.4-10.2); CARBON DIOXIDE 28 mmol/L (22-30); CHLORIDE 103 mmol/L (98-107); GLUCOSE 77 mg/dL (75-110); POTASSIUM 3.6 mmol/L (3.6-5.0); TOTAL PROTEIN 6.4 g/dL (6.3-8.2)
--- NOTE | 2020-02-26 15:04 | ER Document Report ---
ED General - General Chief Complaint: Post Surgical Pain Stated Complaint: POST OP PAIN Time Seen by Provider: 02/26/20 13:09 Mode of Arrival: Ambulatory Information source: Patient TRAVEL OUTSIDE OF THE [place] IN LAST 30 DAYS: No - HPI Notes: Patient presents with some lower pelvic and vaginal pain. She states that 2 days ago she had a hysterectomy. She states that she is not sure what happened but when she woke up from anesthesia she was very angry and left the hospital AGAINST MEDICAL ADVICE. She states that the surgery was done at [facility]. She states she was not sent home with any pain medication and is currently having significant pain. She states this pain is constant. It is worse if anything is put inside of her vagina and is better with rest. No significant radiation. Pain is constant and sharp. She states she is also had some bleeding. She states that she did feel a pop when she picked up her child as well. No vomiting or diarrhea. - Related Data Allergies/Adverse Reactions: amoxicillin Allergy (Verified 04/21/19 10:54) ibuprofen Allergy (Verified 04/21/19 10:54) Past Medical History - General Information source: Patient - Social History Smoking Status: Current Every Day Smoker Frequency of alcohol use: None Drug Abuse: None Family History: Reviewed & Not Pertinent Renal/ Medical History: Denies: Hx Peritoneal Dialysis Psychiatric Medical History: Reports: Hx Anxiety Past Surgical History: Reports: Hx Appendectomy, Hx Genitourinary Surgery - L ovary removed, Hx Gynecologic Surgery - Left salpingo-oophorectomy and multiple laparoscopies for endometriosis., Hx Tonsillectomy - Immunizations Hx Diphtheria, Pertussis, Tetanus Vaccination: Yes Review of Systems - Review of Systems Constitutional: denies: Chills, Fever Cardiovascular: denies: Chest pain, Palpitations Respiratory: denies: Cough, Short of breath -: Yes All other systems reviewed and negative Physical Exam - Vital signs Vitals: Temp Pulse Resp BP Pulse Ox 97.9 F 88 18 112/60 98 02/26/20 12:49 02/26/20 12:49 02/26/20 12:49 02/26/20 12:49 02/26/20 12:49 Interpretation: Normal - General General appearance: Appears well, Alert - HEENT Head: Normocephalic, Atraumatic Eyes: Normal Pupils: PERRL - Respiratory Respiratory status: No respiratory distress Chest status: Nontender Breath sounds: Normal Chest palpation: Normal - Cardiovascular Rhythm: Regular Heart sounds: Normal auscultation Murmur: No - Abdominal Inspection: Normal Distension: No distension Bowel sounds: Normal Tenderness: Nontender Organomegaly: No organomegaly - Genitourinary External exam: Normal Notes: Patient states that a vaginal exam would be too painful. Therefore just an external exam was done. This was unremarkable. No signs of bleeding or discharge was appreciated. There is no foul odors. - Back Back: Normal, Nontender - Extremities General upper extremity: Normal inspection, Nontender, Normal color, Normal ROM, Normal temperature General lower extremity: Normal inspection, Nontender, Normal color, Normal ROM, Normal temperature, Normal weight bearing. No: Skylar's sign - Neurological Neuro grossly intact: Yes Cognition: Normal Orientation: AAOx4 Fede Coma Scale Eye Opening: Spontaneous Combs Coma Scale Verbal: Oriented Combs Coma Scale Motor: Obeys Commands Fede Coma Scale Total: 15 Speech: Normal Motor strength normal: LUE, RUE, LLE, RLE Sensory: Normal - Psychological Associated symptoms: Normal affect, Normal mood - Skin Skin Temperature: Warm Skin Moisture: Dry Skin Color: Normal Course - Vital Signs Vital signs: Temp Pulse Resp BP Pulse Ox 97.9 F 88 18 112/60 98 02/26/20 12:49 02/26/20 12:49 02/26/20 12:49 02/26/20 12:49 02/26/20 12:49 - Laboratory Result Diagrams: 02/26/20 13:30 02/26/20 13:30 Laboratory results interpreted by me: 02/26/20 02/26/20 13:30 13:30 Sodium 136.6 L Urine Blood LARGE H Discharge - Discharge Clinical Impression: Vaginal pain Condition: Stable Disposition: HOME, SELF-CARE Instructions: Pain Medication Injection ([facility]), Toradol Injection ([facility]), Oral Narcotic Medication ([facility]) Additional Instructions: Please call the surgeon who did the operation as soon as possible to arrange follow-up Prescriptions: Hydrocodone/Acetaminophen [Piggott 5-325 mg Tablet] 1 tab PO Q6 PRN 3 Days #12 tablet PRN Reason: Forms: Return to Work
[2020-02-26] MEDS ORDERED: KETOROLAC TROMETHAMINE 60 MG/2 ML SDV IM ONE (15:14)
[2020-02-26 15:30] VITALS: BP 115/73
== END 2020-02-26 15:30 | disposition home or self-care (01) ==
LOC: ER 12:44
DX: R10.2 Pelvic and perineal pain (principal); F17.200 Nicotine dependence, unspecified, uncomplicated; Z90.710 Acquired absence of both cervix and uterus; Z88.0 Allergy status to penicillin; Z88.8 Allergy status to other drugs, medicaments and biological substances
CPT/HCPCS: 99283; 96372; 36415; 85025; 85610; 80053; 81001; J1885